=== PATIENT | female | born 1950 | race Caucasian/White ===

== ENCOUNTER 2016-12-04 13:05 | Inpatient (IN) | payer BC, OTHER ==
[~2016-12-04] VITALS: Ht 170.2 cm; Wt 70.0 kg
[2016-12-04] VITALS (9 sets, daily range): BP systolic 132–170; BP diastolic 89–103; PULSE 70–88; RESP 18–21; TEMP 98.9; O2SAT 98–100
[~2016-12-04 13:05] MED LIST: BETA80TA PO; HYDR-3111 PO; LEVO.075 PO; PLAQ200T PO; TAB-TAB PO; VIGA0.5D RIGHT EYE; [UNRECOGNIZED DRUG - CODE] PO
--- NOTE | 2016-12-04 14:39 | PD ---
HPI Chief Complaint: chest pain Time Seen by Provider: 14:16 Travel History International Travel<30 days: No Contact w/Intl Traveler<30days: No History of Present Illness HPI Patient is a 66-year-old female presents emergency Department with chest pain shortness of breath was mild nausea. Patient states she had a stress test 2 years ago. She states was normal at that time. She states she's never had catheterization. Patient states she was just coming out of her physician's office when she noticed a very tight sensation in the middle of her chest. She states all but relieved with rest but states he felt very diaphoretic when it first happened. Denies any abdominal pain denies any nausea vomiting. PFSH Past Medical History Cardiovascular Problems: Yes Diabetes: No Glaucoma: No Hepatitis: No Hiatal Hernia: No Hypertension: No Thyroid Disease: Yes Past Surgical History Gynecologic Surgery: Yes (HYSTERECTOMY 84') Neurologic Surgery: Yes (ANTERIOR CERVICAL FUSION ) Other Surgery: Yes Social History Alcohol Use: Yes Tobacco Use: No Substance Use: No Allergies-Medications (Allergen,Severity, Reaction): Coded Allergies: No Known Allergies (Unverified , 12/04/16) Reported Meds & Prescriptions Reported Meds & Active Scripts Active Reported Ativan (Lorazepam) 0.5 Mg Tab 0.5 Mg PO DAILY PRN Ambien CR (Zolpidem Tartrate) 12.5 Mg Tab 12.5 Mg PO HS PRN Mobic (Meloxicam) 15 Mg Tab 15 Mg PO DAILY Multi For Her (Multiple Vitamins W/ Minerals) 1 Tab Tab 1 Tab PO DAILY Betapace (Sotalol HCl) 80 Mg Tab 80 Mg PO HS Betapace (Sotalol HCl) 120 Mg Tab 120 Mg PO DAILY Synthroid (Levothyroxine Sodium) 75 Mcg Tab 75 Mcg PO DAILY Review of Systems Except as stated in HPI: all other systems reviewed are Neg Physical Exam Narrative GENERAL: Well-developed well-nourished no obvious distress. SKIN: Focused skin assessment warm/dry. HEAD: Atraumatic. Normocephalic. EYES: Pupils equal and round. No scleral icterus. No injection or drainage. ENT: No nasal bleeding or discharge. Mucous membranes pink and moist. NECK: Trachea midline. No JVD. CARDIOVASCULAR: Regular rate and rhythm. No murmur appreciated. 2+ bilateral equal pulses in all 4 extremity's. RESPIRATORY: No accessory muscle use. Clear to auscultation. Breath sounds equal bilaterally. GASTROINTESTINAL: Abdomen soft, non-tender, nondistended. Hepatic and splenic margins not palpable. MUSCULOSKELETAL: No obvious deformities. No clubbing. No cyanosis. No edema. NEUROLOGICAL: Awake and alert. No obvious cranial nerve deficits. Motor grossly within normal limits. Normal speech. PSYCHIATRIC: Appropriate mood and affect; insight and judgment normal. Data Data Last Documented VS Vital Signs Date Time Temp Pulse Resp B/P Pulse Ox O2 Delivery O2 Flow Rate FiO2 12/04/16 19:23 78 18 166/90 98 Room Air 12/04/16 17:07 98.9 Orders Electrocardiogram (12/04/16 14:38) Ckmb (Isoenzyme) Profile (12/04/16 14:38) Complete Blood Count With Diff (12/04/16 14:38) Comprehensive Metabolic Panel (12/04/16 14:38) Magnesium (Mg) (12/04/16 14:38) Prothrombin Time / Inr (Pt) (12/04/16 14:38) Act Partial Throm Time (Ptt) (12/04/16 14:38) Troponin I (12/04/16 14:38) Chest, Single Ap (12/04/16 14:38) Ecg Monitoring (12/04/16 14:38) Iv Access Insert/Monitor (12/04/16 14:38) Oximetry (12/04/16 14:38) Oxygen Administration (12/04/16 14:38) Aspirin Chew (Aspirin Chew) (12/04/16 14:45) Sodium Chloride 0.9% Flush (Ns Flush) (12/04/16 14:45) CKMB (12/04/16 16:52) CKMB% (12/04/16 16:52) Potassium Chlor 20 Meq Premix (Kcl 20 Me (12/04/16 19:00) Calcium Gluconate Inj (Calcium Gluconate (12/04/16 19:00) Heparin Infusion TJ.Q1H (12/04/16 18:46) Heparin Inj (Heparin Inj) (12/04/16 19:00) Heparin Inj (Heparin Inj) (12/05/16 01:00) Heparin Inj (Heparin Inj) (12/05/16 01:00) Heparin-D5w Inj (Heparin-D5w Inj) (12/04/16 19:00) Cbc No Diff, Includes Plts (12/07/16 06:00) Act Partial Throm Time (Ptt) (12/05/16 01:46) Occult Blood (Hemoccult) Stool (12/04/16 18:46) Phosphorus (Po4) (12/04/16 18:46) Basic Metabolic Panel (Bmp) (12/04/16 18:53) Ckmb (Isoenzyme) Profile (12/04/16 18:53) Troponin I (12/04/16 18:53) Labs Laboratory Tests Test 12/04/16 12/04/16 16:50 16:52 White Blood Count 9.4 TH/MM3 Red Blood Count 4.47 MIL/MM3 Hemoglobin 14.4 GM/DL Hematocrit 42.2 % Mean Corpuscular Volume 94.5 FL Mean Corpuscular Hemoglobin 32.3 PG Mean Corpuscular Hemoglobin 34.2 % Concent Red Cell Distribution Width 12.3 % Platelet Count 218 TH/MM3 Mean Platelet Volume 8.6 FL Neutrophils (%) (Auto) 87.9 % Lymphocytes (%) (Auto) 7.0 % Monocytes (%) (Auto) 4.5 % Eosinophils (%) (Auto) 0.2 % Basophils (%) (Auto) 0.4 % Neutrophils # (Auto) 8.3 TH/MM3 Lymphocytes # (Auto) 0.7 TH/MM3 Monocytes # (Auto) 0.4 TH/MM3 Eosinophils # (Auto) 0.0 TH/MM3 Basophils # (Auto) 0.0 TH/MM3 CBC Comment AUTO DIFF Differential Comment AUTO DIFF CONFIRMED Platelet Estimate NORMAL Platelet Morphology Comment NORMAL Prothrombin Time 10.7 SEC Prothromb Time International 1.0 RATIO Ratio Activated Partial 20.1 SEC Thromboplast Time Sodium Level 145 MEQ/L Potassium Level 2.3 MEQ/L Chloride Level 121 MEQ/L Carbon Dioxide Level 15.2 MEQ/L Anion Gap 9 MEQ/L Blood Urea Nitrogen 7 MG/DL Creatinine 0.24 MG/DL Estimat Glomerular Filtration 290 ML/MIN Rate Random Glucose 66 MG/DL Calcium Level 5.3 MG/DL Protein Corrected Calcium 6.6 MG/DL Magnesium Level 1.1 MG/DL Total Bilirubin 0.2 MG/DL Aspartate Amino Transf 108 U/L (AST/SGOT) Alanine Aminotransferase 19 U/L (ALT/SGPT) Alkaline Phosphatase 43 U/L Total Creatine Kinase 925 U/L Creatine Kinase MB 98.3 NG/ML Creatine Kinase MB % 10.6 % Troponin I 40.00 NG/ML Total Protein 4.1 GM/DL Albumin 2.2 GM/DL MDM Medical Decision Making Medical Screen Exam Complete: Yes Emergency Medical Condition: Yes Interpretation(s) EKG shows normal sinus rhythm normal axis and normal R-wave progression. No concerning ST segment changes. Differential Diagnosis ACS, AMI, CHF, pneumonia. Narrative Course Patient was roomed in emergency department, I ordered discussed with her that if her EKG troponin are negative that she should still consider chest pain center admission for consideration of stress testing. Patient was handed off to Valente Kitchen PA-C. After the patient was handed off to Valente Kitchen I was informed patient's troponin was elevated to 40. I discussed with the patient as well as Valente indications for heparinization. She is chest pain-free hemodynamically stable. I reviewed her EKG again and it is nonischemic. Mr. Kitchen to discuss with the patient's pre algebra teacher Dr. Hester for admission to the hospital. Diagnosis Primary Impression: NSTEMI (non-ST elevated myocardial infarction) Admitting Information Admitting Physician Requests: Admit Condition: Stable Tariq Arriaza MD Dec 04, 2016 14:39
[2016-12-04] MEDS ORDERED: SODIUM CHLORIDE 0.9% FLUSH 10 ML FLUSH IVF PRN (14:45)
[2016-12-04] MEDS ORDERED: ASPIRIN 81 MG CHEW TAB PO ONE (14:45)
--- NOTE | 2016-12-04 15:11 | RADRPT ---
EXAM DATE/TIME: 12/04/2016 14:58 [facility] COMPARISON: No previous studies available for comparison. INDICATIONS : Chest pain. MEDICAL HISTORY : Atrial tachycardia. SURGICAL HISTORY : None. ENCOUNTER: Initial ACUITY: 1 day PAIN SCORE: 5/10 LOCATION: middle chest FINDINGS: A single view of the chest demonstrates the lungs to be symmetrically aerated without evidence of mas s, infiltrate or effusion. The cardiomediastinal contours are unremarkable. Osseous structures are intact. CONCLUSION: No acute disease. Tariq Lim MD on December 04, 2016 at 15:09 Board Certified Radiologist. This report was verified electronically.
--- NOTE | 2016-12-04 17:14 | PD ---
HPI Chief Complaint: Chest Pain Time Seen by Provider: 17:10 Travel History International Travel<30 days: No Contact w/Intl Traveler<30days: No Traveled to known affect area: No History of Present Illness HPI 66- year old female with a PMHx of Hypothyroidism and Atrial tachycardia presents to the ED complaining of chest pain. The patient reports that the pain started around 11:15 this morning while at her physician's office. The patient reports the pain was right in the middle of her chest and she had some associated shortness of breath and diaphoresis at the time. She reports the pain felt like there was an "elephant on her chest." She reports at the time of the chest pain she took two 81 mg ASA. She reports that the pain is currently gone and has no shortness of breath. She reports that she is a former smoker, drinks alcohol, but denies any drug use. She denies any nausea, vomiting, diarrhea, or headache. No other complaints at this time. PFSH Past Medical History Heart Rhythm Problems: Yes (atrial tacycardia ) Cardiovascular Problems: Yes Diabetes: No Glaucoma: No Hepatitis: No Hiatal Hernia: No Hypertension: No Medical other: Yes (ARTHRITIS) Thyroid Disease: Yes Past Surgical History Gynecologic Surgery: Yes (HYSTERECTOMY 86') Neurologic Surgery: Yes (ANTERIOR CERVICAL FUSION ) Other Surgery: Yes Social History Alcohol Use: Yes (OCC) Tobacco Use: No Substance Use: No Allergies-Medications (Allergen,Severity, Reaction): Coded Allergies: No Known Allergies (Unverified , 12/04/16) Reported Meds & Prescriptions Reported Meds & Active Scripts Active Reported Ativan (Lorazepam) 0.5 Mg Tab 0.5 Mg PO DAILY PRN Ambien CR (Zolpidem Tartrate) 12.5 Mg Tab 12.5 Mg PO HS PRN Mobic (Meloxicam) 15 Mg Tab 15 Mg PO DAILY Multi For Her (Multiple Vitamins W/ Minerals) 1 Tab Tab 1 Tab PO DAILY Betapace (Sotalol HCl) 80 Mg Tab 80 Mg PO HS Betapace (Sotalol HCl) 120 Mg Tab 120 Mg PO DAILY Synthroid (Levothyroxine Sodium) 75 Mcg Tab 75 Mcg PO DAILY Review of Systems General / Constitutional: No: Fever, Chills, Weight Gain, Weight Loss, Other Eyes: No: Diploplia, Blurred Vision, Photophobia, Drainage, Redness, Foreign Body Sensation, Pain, Tearing, Blind Spots, Visual changes, Blindness, Other HENT: No: Headaches, Vertigo, Lightheadedness, Sore Throat, Rhinitis, Rhinorrhea, Congestion, Nosebleed, Neck Stiffness, Neck Pain, Masses, Gingival Bleeding, Dental Difficulties, Ear Discharge, Earache, Other Cardiovascular: Positive: Chest Pain or Discomfort (resolved), Diaphoresis ( resolved), No: Palpitations, Irregular Rhythm, Tachycardia, Syncope, Dyspnea on exertion, Varicosities, Edema, Cyanosis, Varicosities, Phlebitis, Claudication, Other Respiratory: Positive: Shortness of Breath (resolved), No: Cough, Wheezing, Sneezing, Orthopnea, Hemoptysis, Stridor, Night Sweats, Pleuritic Pain, Other Gastrointestinal: No: Nausea, Vomiting, Diarrhea, Abdominal Pain, Hematemesis, Hematochezia, Constipation, Changes in Bowel Habits, Indigestion, Dysphagia, Loss of Appetite, Other Genitourinary: No: Urgency, Frequency, Dysuria, Nocturia, Hematuria, Decreased Urinary Output, Oliguria, Hesitancy, Dribbling, Incontinence, Pelvic Pain, Flank Pain, Dyspareunia, Discharge, Dysmenorrhea, Menorrhagia, Metorrhagia, Vaginal Bleeding, Other Musculoskeletal: No: Myalgias, Arthralgias, Limited ROM, Weakness, Cramping, Edema, Pain, Atrophy, Other Skin: No Rash, No Itching, No Dryness, No Lumps, No Hives, No Change in Pigmentation, No Change in nails, No Alopecia, No Lesions, No Breast Lumps, No Breast Tenderness, No Breast Swelling, No Other Neurologic: No: Weakness, Dizziness, Syncope, Focal Abnormalities, Coordination Problem, Tremor, Ataxia, Headache, Change in Mentation, Slurred Speech, Paresthesia, Incontinence, Seizures, Sensory Disturbance, Other Psychiatric: No: Anxiety, Depression, Suicidal Ideations, Disorder of Thought, Mood Disorder, Substance Abuse, Homicidal Ideation, Other Endocrine: No: Heat Intolerance, Cold Intolerance, Polyuria, Polydipsia, Other Hematologic/Lymphatic: No: Easy Bruising, Lymph Node Enlargement, Other Physical Exam Narrative GENERAL: SKIN: Warm and dry. HEAD: Atraumatic. Normocephalic. EYES: Pupils equal and round. No scleral icterus. No injection or drainage. ENT: No nasal bleeding or discharge. Mucous membranes pink and moist. Tongue is midline. No uvula deviation. NECK: Trachea midline. No JVD. CARDIOVASCULAR: Regular rate and rhythm. No S3, S4, or murmurs. RESPIRATORY: No accessory muscle use. Clear to auscultation. Breath sounds equal bilaterally. No wheezing, rales, or rhonchi. GASTROINTESTINAL: Abdomen soft, non-tender, nondistended. Hepatic and splenic margins not palpable. MUSCULOSKELETAL: Extremities without clubbing, cyanosis, or edema. No obvious deformities. Range of motion of the upper and lower extremities bilaterally. 2 + pulses bilaterally. NEUROLOGICAL: Awake and alert. No obvious cranial nerve deficits. Motor grossly within normal limits. Five out of 5 muscle strength in the arms and legs. Normal speech. PSYCHIATRIC: Appropriate mood and affect; insight and judgment normal. Data Data Last Documented VS Vital Signs Date Time Temp Pulse Resp B/P Pulse Ox O2 Delivery O2 Flow Rate FiO2 12/04/16 19:23 78 18 166/90 98 Room Air 12/04/16 17:07 98.9 Orders Electrocardiogram (12/04/16 14:38) Ckmb (Isoenzyme) Profile (12/04/16 14:38) Complete Blood Count With Diff (12/04/16 14:38) Comprehensive Metabolic Panel (12/04/16 14:38) Magnesium (Mg) (12/04/16 14:38) Prothrombin Time / Inr (Pt) (12/04/16 14:38) Act Partial Throm Time (Ptt) (12/04/16 14:38) Troponin I (12/04/16 14:38) Chest, Single Ap (12/04/16 14:38) Ecg Monitoring (12/04/16 14:38) Iv Access Insert/Monitor (12/04/16 14:38) Oximetry (12/04/16 14:38) Oxygen Administration (12/04/16 14:38) Aspirin Chew (Aspirin Chew) (12/04/16 14:45) Sodium Chloride 0.9% Flush (Ns Flush) (12/04/16 14:45) CKMB (12/04/16 16:52) CKMB% (12/04/16 16:52) Potassium Chlor 20 Meq Premix (Kcl 20 Me (12/04/16 19:00) Calcium Gluconate Inj (Calcium Gluconate (12/04/16 19:00) Heparin Infusion TJ.Q1H (12/04/16 18:46) Heparin Inj (Heparin Inj) (12/04/16 19:00) Heparin Inj (Heparin Inj) (12/05/16 01:00) Heparin Inj (Heparin Inj) (12/05/16 01:00) Heparin-D5w Inj (Heparin-D5w Inj) (12/04/16 19:00) Cbc No Diff, Includes Plts (12/07/16 06:00) Act Partial Throm Time (Ptt) (12/05/16 01:46) Occult Blood (Hemoccult) Stool (12/04/16 18:46) Phosphorus (Po4) (12/04/16 18:46) Basic Metabolic Panel (Bmp) (12/04/16 18:53) Ckmb (Isoenzyme) Profile (12/04/16 18:53) Troponin I (12/04/16 18:53) Admit Order (Ed Use Only) (12/04/16 20:08) Consult Cardiology (12/04/16 ) Labs Laboratory Tests Test 12/04/16 12/04/16 12/04/16 16:50 16:52 19:15 White Blood Count 9.4 TH/MM3 Red Blood Count 4.47 MIL/MM3 Hemoglobin 14.4 GM/DL Hematocrit 42.2 % Mean Corpuscular Volume 94.5 FL Mean Corpuscular Hemoglobin 32.3 PG Mean Corpuscular Hemoglobin 34.2 % Concent Red Cell Distribution Width 12.3 % Platelet Count 218 TH/MM3 Mean Platelet Volume 8.6 FL Neutrophils (%) (Auto) 87.9 % Lymphocytes (%) (Auto) 7.0 % Monocytes (%) (Auto) 4.5 % Eosinophils (%) (Auto) 0.2 % Basophils (%) (Auto) 0.4 % Neutrophils # (Auto) 8.3 TH/MM3 Lymphocytes # (Auto) 0.7 TH/MM3 Monocytes # (Auto) 0.4 TH/MM3 Eosinophils # (Auto) 0.0 TH/MM3 Basophils # (Auto) 0.0 TH/MM3 CBC Comment AUTO DIFF Differential Comment AUTO DIFF CONFIRMED Platelet Estimate NORMAL Platelet Morphology Comment NORMAL Prothrombin Time 10.7 SEC Prothromb Time International 1.0 RATIO Ratio Activated Partial 20.1 SEC Thromboplast Time Sodium Level 145 MEQ/L Potassium Level 2.3 MEQ/L Chloride Level 121 MEQ/L Carbon Dioxide Level 15.2 MEQ/L Anion Gap 9 MEQ/L Blood Urea Nitrogen 7 MG/DL Creatinine 0.24 MG/DL Estimat Glomerular Filtration 290 ML/MIN Rate Random Glucose 66 MG/DL Calcium Level 5.3 MG/DL Protein Corrected Calcium 6.6 MG/DL Magnesium Level 1.1 MG/DL Total Bilirubin 0.2 MG/DL Aspartate Amino Transf 108 U/L (AST/SGOT) Alanine Aminotransferase 19 U/L (ALT/SGPT) Alkaline Phosphatase 43 U/L Total Creatine Kinase 925 U/L Creatine Kinase MB 98.3 NG/ML Creatine Kinase MB % 10.6 % Troponin I 40.00 NG/ML Total Protein 4.1 GM/DL Albumin 2.2 GM/DL Phosphorus Level 3.0 MG/DL MDM Medical Decision Making Medical Screen Exam Complete: Yes Emergency Medical Condition: Yes Medical Record Reviewed: Yes Interpretation(s) CBC & BMP Diagram 12/04/16 16:50 12/04/16 16:52 troponin of 40 CKMB elevated. EKG shows sinus rhythm with no sign of acute ischemia or arrhythmia. Read by me and attending. Last Impressions Chest X-Ray 12/04/16 5108 Signed Impressions: Service Date/Time: November 14:58 - CONCLUSION: No acute disease. Tariq Lim MD Differential Diagnosis STEMI versus N- STEMI versus chest pain versus ACS Narrative Course 66-year-old female that presents to the ED for evaluation of chest pain. Patient was initially evaluated by my attending. Please refer to his note. I was asked to take over case. Patient waiting for labs and likely admission to chest pain center. Patient was already given aspirin. Patient has been chest pain-free since been here and since been evaluated by Dr. Arriaza. He was found to have bigeminy initially and this seems to comes and go but her EKG here does not show any sign of ischemia. This was rechecked by me and my attending Dr. Arriaza and there is no sign of ischemia. Labs came back showing a hypokalemia, hypocalcemia, troponin of 40. Otherwise unremarkable. Case was discussed immediately with my attending Dr. Arriaza after for another troponin of 40 and he immediately went in and evaluated the patient with me and recommends admission and cardiology consult. Patient started on heparin, potassium and calcium as per my attendings recommendations. Patient follows with Dr. Hester for cardiology. Call placed to Dr. Hester who agrees with admission and nothing by mouth after midnight for likely cath Tomorrow. He wants to have the cardiac enzymes rechecked. HEPAS was paged and Dr. Rodriguez agrees to admission. Procedures EKG Prior to Arrival: Yes Diagnosis Primary Impression: NSTEMI (non-ST elevated myocardial infarction) Admitting Information Admitting Physician Requests: Admit Valente Kitchen Dec 04, 2016 17:14
[2016-12-04] MEDS ORDERED: AMBI12.5 PO (17:15)
[2016-12-04] MEDS ORDERED: LORA-392 PO (17:15)
[2016-12-04] MEDS ORDERED: [UNRECOGNIZED DRUG - CODE] PO (17:15)
[2016-12-04] MEDS ORDERED: BETA80TA PO (17:15)
[2016-12-04] MEDS ORDERED: MULTTAB24 PO (17:15)
[2016-12-04] MEDS ORDERED: MOBI15TA PO (17:15)
[2016-12-04 18:20] LABS: APTT (PATIENT) 20.1 SEC (24.3-30.1); PROTHROMBIN TIME - PATIENT 10.7 SEC (9.8-11.6)
[2016-12-04 18:28] LABS: AUTOMATED NEUTROPHIL # 8.3 TH/MM3 (1.8-7.7); BASOPHIL % 0.4 % (0.0-2.0); EOSINOPHIL % 0.2 % (0.0-4.0); HEMATOCRIT 42.2 % (35.0-46.0); LYMPHOCYTE # 0.7 TH/MM3 (1.0-4.8); MEAN CELL VOLUME 94.5 FL (80.0-100.0); MEAN CORPUSCULAR HEMOGLOBIN 32.3 PG (27.0-34.0); MEAN CORPUSCULAR HGB CONC 34.2 % (32.0-36.0); MONO % 4.5 % (0.0-8.0); NEUT % 87.9 % (16.0-70.0); PLATELET COUNT 218 TH/MM3 (150-450); RED BLOOD COUNT 4.47 MIL/MM3 (4.00-5.30); RED CELL DISTRIBUTION WIDTH 12.3 % (11.6-17.2); WHITE BLOOD COUNT 9.4 TH/MM3 (4.0-11.0)
[2016-12-04 18:29] LABS: HEMO FLAGS AUTO DIFF
[2016-12-04 18:34] LABS: BICARBONATE 15.2 MEQ/L (21.0-32.0); MAGNESIUM 1.1 MG/DL (1.5-2.5); TOTAL BILIRUBIN ADULT 0.2 MG/DL (0.2-1.0)
[2016-12-04 18:39] LABS: CALCIUM-PROTEIN CORRECTED 6.6 MG/DL (8.5-10.1); POTASSIUM 2.3 MEQ/L (3.5-5.1)
[2016-12-04] MEDS ORDERED: HEPARIN SODIUM - IV 10,000 UNITS/10 ML VIAL IV ONE (19:00)
[2016-12-04] MEDS ORDERED: CALCIUM GLUCONATE INJ 2 GM in DEXTROSE 5% IN WATER 100ML INJ 100 ML IV ONE ×2 (19:00)
[2016-12-04] MEDS ORDERED: HEPARIN-D5W 25,000 U/250 ML 250 ML IV SCH (19:00)
[2016-12-04 19:02] LABS: CKMB 98.3 NG/ML (0.5-3.6)
[2016-12-04 19:04] LABS: PLATELET ESTIMATE SMEAR NORMAL (NORMAL); PLATELET MORPHOLOGY NORMAL (NORMAL); SCAN/DIFF AUTO DIFF CONFIRMED
--- NOTE | 2016-12-04 20:27 | HHI.HP ---
[facility] Tami Kulkarni MD Admission Diagnosis NSTEMI Diagnoses: (1) NSTEMI (non-ST elevated myocardial infarction) Diagnosis: Principal (2) Atrial tachycardia Diagnosis: Principal (3) Hypokalemia Diagnosis: Principal (4) Hypocalcemia Diagnosis: Principal (5) Rhabdomyolysis Diagnosis: Principal (6) HTN (hypertension) Diagnosis: Principal Travel History International Travel<30 Days: No Contact w/Intl Traveler <30 Da: No Traveled to Known Affected Are: No History of Present Illness This is a 66-year-old female with a PMH of PSVT, Atrial Tachycardia, Anxiety and Hypothyroidism who presented to the ER with complaints of chest pain starting earlier this morning. Patient states she had gone to see her Pain Management physician this morning and noted acute onset of right-sided chest pain w/ "flip flopping" in her chest. Reports associated SOB and diaphoresis at that time. Does follow with Dr. Hester as outpatient, seen recently in office w/ normal exam. On arrival, BP 165/89, HR 76, O2 sat 100% on RA, Afebrile. CBC essentially unremarkable except for elevated neutrophil calm. K + 2.3. Ca 5.3. CPK 925. Trop 40.0. INR 1.0. CXR with no acute findings. Dr. Hester consulted by ER physician, started on Heparin gtt/Aggrastat infusion w/ plans for Cath in am. Pt currently chest pain free. Appears comfortable on exam. Electrolytes replaced in ER, repeat labs normalized. Repeat Trop >40. Review of Systems Except as stated in HPI: all other systems reviewed are Neg ROS: 14 point review of systems otherwise negative. Past Family Social History Past Medical History PMH: PSVT, Atrial Tachycardia, Anxiety and Hypothyroidism Past Surgical History PAST SURGICAL HISTORY: Hysterectomy, Anterior Cervical Fusion Allergies: Coded Allergies: No Known Allergies (Unverified , 12/04/16) Family History PAST FAMILY HISTORY: Reviewed. No h/o DM or CAD Social History PAST SOCIAL HISTORY: Occasional alcohol. Negative for tobacco or drugs. Physical Exam Vital Signs Vital Signs Date Time Temp Pulse Resp B/P Pulse Ox O2 Delivery O2 Flow Rate FiO2 12/04/16 19:23 78 18 166/90 98 Room Air 12/04/16 17:07 98.9 75 21 165/89 100 12/04/16 17:04 21 99 12/04/16 17:00 76 21 99 Room Air 12/04/16 17:00 98.9 83 21 165/89 100 Room Air Physical Exam PE: GENERAL: Extremely pleasant middle-aged white female in no acute distress. Appears comfortable. HEENT: PERRLA, EOMI. No scleral icterus or conjunctival pallor. No lid lag or facial droop. CARDIOVASCULAR: Regular rate and rhythm. No obvious murmurs to auscultation. No chest tenderness to palpation. RESPIRATORY: No obvious rhonchi or wheezing. Clear to auscultation. Breath sounds equal bilaterally. GASTROINTESTINAL: Abdomen soft, non-tender, nondistended. BS normal. MUSCULOSKELETAL: Extremities without clubbing, cyanosis, or edema. No obvious deformities. NEUROLOGICAL: Awake, alert and oriented x4. No focal neurologic deficits. Moving both upper and lower extremities spontaneously. Laboratory Laboratory Tests Test 12/04/16 12/04/16 12/04/16 16:50 16:52 19:15 White Blood Count 9.4 Red Blood Count 4.47 Hemoglobin 14.4 Hematocrit 42.2 Mean Corpuscular Volume 94.5 Mean Corpuscular Hemoglobin 32.3 Mean Corpuscular Hemoglobin 34.2 Concent Red Cell Distribution Width 12.3 Platelet Count 218 Mean Platelet Volume 8.6 Neutrophils (%) (Auto) 87.9 Lymphocytes (%) (Auto) 7.0 Monocytes (%) (Auto) 4.5 Eosinophils (%) (Auto) 0.2 Basophils (%) (Auto) 0.4 Neutrophils # (Auto) 8.3 Lymphocytes # (Auto) 0.7 Monocytes # (Auto) 0.4 Eosinophils # (Auto) 0.0 Basophils # (Auto) 0.0 CBC Comment AUTO DIFF Differential Comment AUTO DIFF CONFIRMED Platelet Estimate NORMAL Platelet Morphology Comment NORMAL Prothrombin Time 10.7 Prothromb Time International 1.0 Ratio Activated Partial 20.1 Thromboplast Time Sodium Level 145 Potassium Level 2.3 Chloride Level 121 Carbon Dioxide Level 15.2 Anion Gap 9 Blood Urea Nitrogen 7 Creatinine 0.24 Estimat Glomerular Filtration 290 Rate Random Glucose 66 Calcium Level 5.3 Protein Corrected Calcium 6.6 Magnesium Level 1.1 Total Bilirubin 0.2 Aspartate Amino Transf 108 (AST/SGOT) Alanine Aminotransferase 19 (ALT/SGPT) Alkaline Phosphatase 43 Total Creatine Kinase 925 Creatine Kinase MB 98.3 Creatine Kinase MB % 10.6 Troponin I 40.00 Total Protein 4.1 Albumin 2.2 Phosphorus Level 3.0 Result Diagram: 12/04/16 1650 12/04/16 165 Assessment and Plan Problem List: (1) NSTEMI (non-ST elevated myocardial infarction) ICD Code: I21.4 Status: Acute (2) Atrial tachycardia ICD Code: I47.1 Status: Acute (3) Hypokalemia ICD Code: E87.6 Status: Acute (4) Hypocalcemia ICD Code: E83.51 Status: Acute (5) Rhabdomyolysis ICD Code: M62.82 Status: Acute (6) HTN (hypertension) ICD Code: I10 Status: Acute Assessment and Plan A/P: 1. NSTEMI: acute onset of substernal chest pain, diaphoresis and SOB. Trop 40.0, repeat Trop >40. EKG w/ no acute ischemia. Follows w/ Dr. Hester as outpatient, started on Heparin gtt/Aggrastat w/ plan for Cath in am. NPO, NTG/ Morphine prn as needed, currently chest pain free. Case discussed w/ Dr. Hester 2. Atrial Tachycardia: h/o PSVT/Atrial Tachycardia, transient episode of tachycardia in ER, currently resolved after Lopressor. Resume home Sotalol, will monitor. 3. Hypokalemia: K+ 2.3, s/p replacement in ER, repeat K+ 3.6, will repeat labs and replace as needed. 4. Hypocalcemia: Ca 5.3, corrected 6.6, s/p replacement, repeat 8.8. Will recheck in am. 5. Rhabdomyolysis: CPK 925, repeat 1623, will check serial CPK for trend. Check U/a, UDS. IVF for hydration. 6. HTN: BP 160's, resume home medications, monitor BP. 7. DVT Prophylaxis: On Heparin/Aggrastat 8. Social work for d/c planning as needed. 9. Case discussed w/ ER physician at length. Physician Certification 2 Midnight Certification Type: Admission for Inpatient Services Order for Inpatient Services The services are ordered in accordance with Medicare regulations or non- Medicare payer requirements, as applicable. In the case of services not specified as inpatient-only, they are appropriately provided as inpatient services in accordance with the 2-midnight benchmark. Estimated LOS (days): 2 days is the estimated time the patient will need to remain in the hospital, assuming treatment plan goals are met and no additional complications. Post-Hospital Plan: Not yet determined Rosana Rodriguez MD Dec 04, 2016 20:27
[2016-12-04] MEDS ORDERED: MAGNESIUM HYDROXIDE SUSP 30 ML CUP PO PRN (20:30)
[2016-12-04] MEDS ORDERED: MORPHINE SULFATE 4 MG/ML INJ IV PRN (20:30)
[2016-12-04] MEDS ORDERED: SODIUM CHLORIDE 0.9% FLUSH 10 ML FLUSH IV FLUSH PRN ×2 (20:30→20:45)
[2016-12-04] MEDS ORDERED: NITROGLYCERIN 2% OINT 1 GM PACKET TOPICAL PRN (20:30)
[2016-12-04] MEDS ORDERED: LACTULOSE SYRUP 20 GM/30 ML CUP PO PRN (20:30)
[2016-12-04] MEDS ORDERED: ACETAMINOPHEN/HYDROcodone 325 MG/5 MG TAB PO PRN (20:30)
[2016-12-04] MEDS ORDERED: BISACODYL 10 MG SUPP RECTAL PRN (20:30)
[2016-12-04] MEDS ORDERED: ONDANSETRON HCL 4 MG/2 ML VIAL IVP PRN (20:30)
[2016-12-04] MEDS ORDERED: SENNOSIDES 8.6 MG TAB PO PRN (20:30)
[2016-12-04] MEDS ORDERED: ACETAMINOPHEN 325 MG TAB PO PRN ×2 (20:30→20:45)
[2016-12-04] MEDS: POTASSIUM CHLOR 20 MEQ PREMIX 100 ML IV SCH ×2 (20:31→21:00)
[2016-12-04] MEDS ORDERED: METOPROLOL TARTRATE 5 MG/5 ML VIAL IV PUSH STA ×2 (20:41→21:38)
[2016-12-04 20:43] LABS: ANION GAP 10 MEQ/L (5-15); BICARBONATE 22.8 MEQ/L (21.0-32.0); BLOOD UREA NITROGEN 11 MG/DL (7-18); CHLORIDE 100 MEQ/L (98-107); CREATINE KINASE 1623 U/L (26-192); GLOMERULAR FILTRATION RATE 93 ML/MIN (>89); POTASSIUM 3.6 MEQ/L (3.5-5.1); SODIUM (NA) 133 MEQ/L (136-145)
[2016-12-04] MEDS ORDERED: TIROFIBAN INFUSION INJ 250 ML IV SCH (20:43)
[2016-12-04] MEDS ORDERED: MORPHINE SULFATE 8 MG/ML INJ IV PUSH PRN (20:45)
[2016-12-04] MEDS: LORazepam 0.5 MG TAB PO PRN (20:58)
[2016-12-04] MEDS ORDERED: SODIUM CHLORIDE 0.9% FLUSH 10 ML FLUSH IV FLUSH SCH (21:00)
[2016-12-04] MEDS ORDERED: POTASSIUM CHLORIDE 20 MEQ CONTROLLED RELEASE TAB PO ONE (21:00)
[2016-12-04] MEDS ORDERED: METOPROLOL TARTRATE 25 MG TAB PO SCH (21:00)
[2016-12-04] MEDS ORDERED: ATORVASTATIN 10 MG TAB PO SCH (21:00)
[2016-12-04 21:05] LABS: CKMB 149.5 NG/ML (0.5-3.6)
[2016-12-04] MEDS ORDERED: ENALAPRILAT 1.25 MG/ML VIAL IV PUSH PRN (21:45)
[2016-12-04] MEDS ORDERED: LOSARTAN 25 MG TAB PO ONE (21:45)
[2016-12-04] MEDS: DOCUSATE SODIUM 50 MG/SENNA 8.6 MG TAB PO SCH (21:51)
[2016-12-04] MEDS: NITROGLYCERIN 2% OINT 1 GM PACKET TOP SCH (21:52)
[2016-12-04] MEDS: SODIUM CHLOR 0.9% 1000 ML INJ 1,000 ML IV SCH (21:53)
[2016-12-04] MEDS: SOTALOL HCL 80 MG TAB PO SCH (21:53)
--- NOTE | 2016-12-04 22:53 | MB ---
cc: GREY LONDONO M.D. DATE OF CONSULTATION December 04, 2016 REASON FOR CONSULTATION Chest pain. HISTORY Mrs. 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 The patient was in her usual state of good health until earlier today around noon when she was leaving her pain physician's office where she was discussing possible nerve root ablations for her back pain. Shortly thereafter she was very anxious about the procedure that was described to her and began experiencing a substernal chest discomfort she describes as a pressure sensation. This was associated with nausea and diaphoresis and some shortness of breath. She tells me that persisted when she went home and then after about 2 hours finally decided to call the ambulance and come to the emergency room. She said she still had some discomfort here in the emergency room and overall she feels that the discomfort lasted between 4 and 5 hours. She is currently lying in bed and is asymptomatic. She denies any chest discomfort at this time. Her initial EKG in the emergency room showed no significant ST deviation. Her initial cardiac enzymes, however, did come back abnormal with an elevated troponin and CPK. She has not had any previous episodes of chest discomfort. She denies any history of exertional dyspnea or chest discomfort. She has been taking all of her medication as directed. MEDICATIONS At home include: 1. Betapace 80 milligrams in the evening with 120 milligrams in the morning. 2. Fish oil supplements 1000 milligrams daily. 3. Levothyroxine 50 micrograms daily. 4. Plaquenil 200 milligrams daily. She says she has been off that for a few weeks now. 5. Multivitamins daily. 6. Ambien CR 12.5 milligrams at bedtime. 7. Lorazepam 0.5 milligrams p.r.n. 8. Ibuprofen p.r.n. 9. Vicodin 7.5/350 milligrams p.r.n. ALLERGIES None known. PAST MEDICAL HISTORY Osteoarthritis, atrial arrhythmias as noted, borderline hypertension, hypothyroidism. She denies history of previous myocardial infarction, heart failure, stroke, heart murmur, scarlet fever, rheumatic fever, pulmonary, gastrointestinal, liver or kidney disease. PAST SURGICAL HISTORY Hysterectomy 1983 and a cervical fusion in 1993, AV meagan ablation in 1997 that was unsuccessful for that time. FAMILY HISTORY There is history of coronary artery disease in her father who had a bypass surgery. SOCIAL HISTORY The patient is , lives with her . She is a mental health counselor. Denies any tobacco use at this time. She was a cigarette smoker one pack of cigarettes a day on and off for about 20 years but quit around 2002. Denies any illicit drug use. REVIEW OF SYSTEMS Denies lower extremity edema or claudication. Has occasional palpitations. Denies lightheadedness or syncope. Denies fevers, chills, night sweats, nausea, vomiting, diarrhea except for those mentioned today. Otherwise, her 12-point review of systems is negative except for that mentioned in the HPI. PHYSICAL EXAMINATION GENERAL: Reveals a 66-year-old thin white female lying in bed, anxious but in no distress. VITAL SIGNS: Blood pressure is 163/103 mmHg, heart rate 126 and regular, respiratory rate 18, temperature 98.9, oxygen saturation is 99% on room air. HEENT: Head is normocephalic and atraumatic. Pupils equal, round, reactive to light. Sclerae anicteric. Extraocular moments intact. NECK: Neck is supple. There is no adenopathy. No jugular venous distention at 90 degrees. Carotid upstrokes are normal. There are no bruits. Thyroid exam is normal. LUNGS: Lungs are clear. HEART: PMI is not displaced. S1-S2 normal. No murmurs, gallops, clicks or rubs. ABDOMEN: Bowel sounds present, soft, nontender. No hepatosplenomegaly, masses or bruits. EXTREMITIES: No cyanosis, clubbing or edema. Pulses are +4 bilaterally throughout the upper and lower extremities. There are no femoral bruits. NEUROLOGIC: Exam is grossly intact. CARDIOLOGY STUDIES EKG initially at 14:38 today in the emergency room on arrival showed a sinus rhythm, rate 72. Borderline left atrial abnormality. Some borderline ST depression in the anterior leads. Borderline abnormal EKG. Repeat EKG at this time shows a sinus tachycardia of 127 beats per minute with some inferior and anterior ST depression. IMAGING STUDIES Chest x-ray no acute disease. LABORATORY DATA CBC, white count 9.4, hemoglobin 14.4, platelet count 218,000. Coags were normal. Chemistries, sodium initially 145 with a potassium of 2.3 and a chloride of 121, CO2 15.2. Repeat at 19:15 hours sodium 133, potassium 3.6, chloride 100, CO2 22.8, BUN 11, creatinine 0.64, calcium 8.8, phosphorus 3.0. CPK on initial draw on admission 925 with a CPK MB percent of 10.6 and a troponin-I of 40.0. Repeat at 19:15 hours, CPK 1623, MB percent 9.2, troponin I greater than 40. IMPRESSION 1. Swk-HI-[id number] myocardial infarction. 2. Hypertension and tachycardia. 3. Suspected ASHD. 4. Hypokalemia. 5. Hypothyroidism, on replacement. 6. History of AV meagan reentry tachycardia and PSVT, successfully treated with sotalol. 7. Hypertriglyceridemia. 8. Anxiety disorder. RECOMMENDATIONS The patient has been started on intravenous heparin already in the emergency room. Topical nitrates and aspirin have been administered. She is having her potassium replaced both intravenously and orally. She will be given one dose of Lopressor 5 milligrams IV to improve her blood pressure and heart rate initially and then started on metoprolol 12.5 milligrams p.o. b.i.d. Her home medications will also be restarted including her sotalol. Atorvastatin 10 milligrams daily has also been ordered. She will be placed on tirofiban infusion this evening overnight and I have discussed with her plans for invasive workup first thing tomorrow morning with cardiac catheterization and possible PCI if indicated. I have discussed the indications, benefits, risks and alternatives of this procedure. Risks discussed include acute myocardial infarction, VT/VF, , arterial injury, bleeding, stroke, need for emergent open heart surgery. She understands these risks and is wishing and willing to proceed as planned tomorrow morning. If she has any recurrent chest discomfort between now and then we will do this emergently. I have discussed the case and plans with the hospitalist, Dr. Rodriguez, the patient and the nursing staff. Thank you for allowing me to participate in the care of this patient. MD VICENTE Anaya/JAZMÍN /9:09 PM /10:24 PM
[2016-12-04] MEDS: ZOLPIDEM TARTRATE 10 MG TAB PO PRN (23:48)
[2016-12-05] VITALS (14 sets, daily range): BP systolic 98–141; BP diastolic 55–89; PULSE 62–98; RESP 16–18; TEMP 98.1–98.7; O2SAT 97–100
[2016-12-05] MEDS ORDERED: HEPARIN SODIUM - IV 10,000 UNITS/10 ML VIAL IV PRN ×2 (01:00)
[2016-12-05 01:48] LABS: APTT (PATIENT) 51.1 SEC (24.3-30.1)
[2016-12-05 02:47] LABS: CKMB 74.9 NG/ML (0.5-3.6)
[2016-12-05] MEDS: LEVOTHYROXINE SODIUM 75 MCG TAB PO SCH (06:00)
[2016-12-05] MEDS: NITROGLYCERIN 2% OINT 1 GM PACKET TOP SCH ×2 (06:45)
[2016-12-05] MEDS ORDERED: HEPARIN-NS/PF INJ 500 ML ONE (07:24)
[2016-12-05] MEDS ORDERED: IOHEXOL 350 MG/ML 100 ML BTL (for Cath Lab) OTHER ONE (07:36)
[2016-12-05] MEDS ORDERED: MIDAZOLAM HCL 2 MG/2 ML VIAL ONE (07:36)
[2016-12-05] MEDS ORDERED: oxyCODONE/ACETAMINOPHEN 5 MG/325 MG TAB PO PRN (08:15)
[2016-12-05] MEDS ORDERED: LORazepam 2 MG/ML VIAL IV PRN (08:15)
[2016-12-05] MEDS ORDERED: BACITRACIN OINT 0.9 GM PKT TOP ONE (08:15)
[2016-12-05] MEDS ORDERED: SODIUM CHLOR 0.9% 250 ML INJ 250 ML IV PRN (08:15)
[2016-12-05] MEDS ORDERED: SODIUM CHLORIDE 0.9% FLUSH 10 ML FLUSH IV FLUSH PRN (08:15)
[2016-12-05] MEDS ORDERED: SODIUM CHLOR 0.9% 1000 ML INJ 1,000 ML IV SCH (08:15)
[2016-12-05] MEDS ORDERED: ATROPINE SULFATE 1 MG/ML VIAL IV PRN (08:15)
[2016-12-05] MEDS ORDERED: MISC INFORMATION XX ONE (08:15)
--- NOTE | 2016-12-05 08:25 | CATHPROC ---
[facility] HIS Report Study Information Study Number Admission Scheduled Start Study Start [id number] Dec 04 2016 8:10PM 12/04/2016 Dec 05 2016 6:51AM [facility] Cardiac Catheterization Admit Source Facility Department Emergency department [facility] - Director Of Food And Beverage Services Physician and Clinical Staff Initial Dario Giles Primary Products Inspectors Destiny Lorenzana,RN Primary Products Inspectors Allan Sims,LUZ Recorder Genaro Law RCIS(BS) Scrub Cheryl Bassett,(R) (BS) X-Ray cathlab, cathlab Procedures Performed Procedure Location (Site) Vessel Name Angiogram LV LV Ventricle Coronary Angiograms LCA Left Coronary Coronary Angiograms RCA Right Coronary L Heart Cath Equipment Time Clockmaker Apprentice Description Size Mfg Part Number Used/Scraped TRANSDUCER, TRUWAVE [id number] 07:19 MCLEOD MORALES * Used W/STOCKCOCK *[id number] 07:54 CARDIShake MEDICAL VASCADE, FR6 CLOSURE SYSTEM FR 6\7 Used *[id number] *[id number] *[id number] *[id number] 07:44 MALLINCKRODT SYRINGE, ANGIOMAT 150ML 150ML *[id number] Used 2SUB [id number] 07:19 MEDLINE INDUSTRIES PACK, CCL CUSTOM * Used *[id number] 07:19 MEDLINE PACER PEN, SKIN DUAL W/ RULER * Used *[id number] 07:19 Anna Lozabai MEDICAL SHEATH, FR6.5 PRELUDE 11CM FR 6.5 038ACT Used *[id number] 07:19 Anna Lozabai MEDICAL WIRE, 3MMJ .035 180CM 180CM Used *[id number] 07:19 NAMIC MANIFOLD, 4 PORT * Used *[id number] 07:19 NYCOMED OMNIPAQUE, 350 MG, 150ML 150ML [id number] Used 07:42 NYCOMED OMNIPAQUE, 350 MG, 50ML 50ML [id number] Used [id number] 07:19 [employer]ream MEDICAL BLANKET,WARM AIR CCL * Used *[id number] History: Current Medications Medication Dosage/Unit Route Frequency Last Date/Time Taken ATIVAN Ambien Synthroid Beta Re History: Allergies Allergy Reaction No Known Allergies History: Risk Factors Family History of Hypertension Dyslipidemia Previous AL Previous Heart Failure Premature CAD No No No No No Prior Valve Prior PCI Prior CABG Surgery No No No Cerebrovascular Peripheral Artery Chronic Lung On Dialysis Diabetes Disease Disease Disease No No No No No History: Symptoms/Diagnosis Selection Items Chest pain SOB History: Other Current Smoker Method No Cigarettes Labs Hgb (g/dl) Hct (%) WBC (l/cumm) Platelets (thousands) 11.60-17.00 35.00-51.00 4.00-11.00 150.00-450.00 14.4 12.2 9.4 218 Glucose (mg/dl) BUN (mg/dl) Creatinine (mg/dl) BUN:Creatinine (1:x) 74.00-106.00 7.00-18.00 0.50-1.30 10.00-20.00 108 11 0.6 18.3 Na (meq/l) K (meq/l) 136.00-145.00 3.50-5.10 133 3.6 INR (PTT:PT) 0.90-1.10 1 Troponin I (ng/ml) CPK (u/l) CPK-MB (ng/ML) 0.02-0.05 26.00-308.00 0.50-3.60 40 64 Not Drawn Medication Medication Total Dose (Bolus/Oral) Medication Total Dosage/Unit 1% XYLOCAINE 20 mL FENTANYL 75 mcg VERSED 2 mg Medications (Bolus/Oral) Medication Time Given Dosage/Unit Administered By Reason FENTANYL 12/05/2016 7:29:02 AM 50 mcg Destiny Lorenzana 50 mcg FENTANYL given in lab by Destiny Lorenzana RN in Left Antecubital via Peripheral IV. Ordered by Dario Hester. 1% XYLOCAINE 12/05/2016 7:36:29 AM 20 mL Dario Hester 20 mL 1% XYLOCAINE given in lab by Dario Hester in Right Groin via Subcutaneous. Ordered by Dario Samuel. VERSED 12/05/2016 7:37:04 AM 2 mg Destiny Lorenzana 2 mg VERSED given in lab by Destiny Lorenzana, LUZ in Left Antecubital via Peripheral IV. Ordered by Dario Hernandez. FENTANYL 12/05/2016 7:48:48 AM 25 mcg Prateek Lorenzanaon 25 mcg FENTANYL given in lab by Destiny Lorenzana RN in Left Antecubital via Peripheral IV. Ordered by Dario Hester. Medication (Drip) Medication Time Given Dosage/Unit Concentration/Unit Diluent (ml) Solution AGGRASTAT DRIP 12/05/2016 7:21:46 AM 0.15 mcg/kg/min 12.5 mg 250 NaCl .9 Patient arrived on 0.15 mcg/kg/min AGGRASTAT DRIP in Left Antecubital via Peripheral IV. Pump/Drip Fl ow = 12.02 ml/hr using NaCl .9 with a concentration of 12.5 mg in 250 ml. Ordered by Dario Hester. AGGRASTAT DRIP 12/05/2016 7:55:09 AM 0 units/hr 0 STOPPED 0 units/hr AGGRASTAT DRIP STOPPED given in lab by Destiny Lorenzana RN in Left Antecubital via Peripher al IV. Pump/Drip Flow = 0 ml/hr using [Solution Name]. Ordered by Dario Hester. Initial Case Assessment Cardiovascular HR Rhythm NIBP Chest Pain 75 sinus 152/99 0 Edema Present Skin color Skin None Normal Warm Dry Circulatory - Right Pulses Dorsalis Pedis Femoral 3 2 Scale (0,1,2,3,4,d) Circulatory - Left Pulses Dorsalis Pedis Femoral 3 2 Scale (0,1,2,3,4,d) Neurological State Oriented to time-place- Alert Moves all extremities person Respiration - General Respiration Rate SpO2 (%) (B/min) 15 99 Final Case Assessment Cardiovascular HR Rhythm NIBP Chest Pain 75 sinus 152/99 0 Edema Present Skin color Skin None Normal Warm Dry Circulatory - Right Pulses Dorsalis Pedis Femoral 3 2 Scale (0,1,2,3,4,d) Circulatory - Left Pulses Dorsalis Pedis Femoral 3 2 Scale (0,1,2,3,4,d) Neurological State Oriented to time-place- Alert Moves all extremities person Respiration - General Respiration Rate SpO2 (%) (B/min) 15 99 Chronological Log Time Study Chronological Log 7:17:30 Patient arrived via Bed. 7:17:31 Patient Name, D.O.B, / Armband Verified By R.N. 7:17:31 Consent signed by the physician and the patient and verified by the Director Of Food And Beverage Services staff. 7:17:32 Pre-op and post- op instructions given; patient acknowledges understanding of instructions. 7:17:32 Verbal Stimulation=2 Physical Stimulation=2 Airway=2 Respiration=2 TOTAL=8. (0=absent, 1=li mited, 2=present) 7:17:33 Presedation assessment performed by Director Of Food And Beverage Services RN. 7:17:34 Immediate Presedation assesment performed by physician. 7:17:35 Patient has been NPO for More than 6Hrs. 7:17:35 Skin Breakdown- none per patient 7:17:36 Patient Warmer Placed on the Table. 7:17:37 Devang Prominences Protected 7:17:38 A # 20 IV was noted in the Antecubital (left). Grade = 0 7:21:38 A # 20 IV was noted in the Antecubital (right). Grade = 0 Patient arrived on 0.15 mcg/kg/min AGGRASTAT DRIP in Left Antecubital via Peripheral IV. Pump/D rip Flow = 12.02 7:21:46 ml/hr using NaCl .9 with a concentration of 12.5 mg in 250 ml. Ordered by Dario Hester. 7:23:02 MD arrived. Vitals capture started with the following parameters, Patient=Adult, Interval=3 min, Initial Pr zisavk=630 mmHg, 7:24:13 Deflation Rate=5 mmHg, Cuff placed on Right Arm 7:24:38 Reference ECG taken Assessment: Initial Case, HR=75 BPM, Rhythm=sinus, OWLZ=731/99 mmhg, Chest Pain=0, Edema=None, Color=Normal, Skin = Warm, Dry Right Pulses: Jorge Ped=3, Femoral=2 7:24:41 Left Pulses: Jorge Ped=3, Femoral=2 Neurological: State=Alert, Ox3, GUAMAN Respiration: Resp=15 B/min, SpO2=99 % 7:24:46 HR=75 bpm, EJJX=094/99 mmhg, SpO2=99.0 %, Resp=15 B/min, Pain=0, Adarsh=10, Delacruz=2 7:25:21 Contrast Scanned 7:25:22 Immediate Presedation assesment performed by physician. 7:27:47 HR=75 bpm, IHUN=223/101 mmhg, CbG3=616.0 %, Resp=20 B/min, Delacruz=2 7:29:02 50 mcg FENTANYL given in lab by Destiny Lorenzana, RN in Left Antecubital via Peripheral IV. Or dered by Dario Hester. 7:30:47 HR=72 bpm, IENO=656/95 mmhg, SqX3=502.0 %, Resp=14 B/min, Pain=0, Adarsh=10, Delacruz=2 7:30:53 Right groin prepped with 2% chlorhexidine, and with a 3 min. waiting time. 7:33:47 HR=76 bpm, GQFO=792/102 mmhg, HrQ5=385.0 %, Resp=14 B/min, Pain=0, Delacruz=2 Time Out. Correct patient, correct procedure,correct physician, power injector not loaded with c ontrast with surgical 7:35:19 team present. Time Out Concurred by MD and individual staff in procedure 7:35:57 Pressure channel 1 zeroed. 7:36:26 Case Start 7:36:29 20 mL 1% XYLOCAINE given in lab by Dario Hester in Right Groin via Subcutaneous. Ordered by Dario Hester. 7:36:47 HR=79 bpm, BLUR=509/96 mmhg, TyZ1=320.0 %, Resp=14 B/min 7:37:04 2 mg VERSED given in lab by Destiny Lorenzana RN in Left Antecubital via Peripheral IV. Ordere d by Dario Hester. 7:39:41 HR=72 bpm, KGOC=043/97 mmhg, PiX1=910.0 %, Resp=10 B/min, Pain=0, Delacruz=2 7:39:58 Access site was Right Femoral Artery. 7:40:00 A SHEATH, FR6.5 PRELUDE 11CM FR 6.5 was advanced into the Fem Art (right) using the Percutan eous technique. 7:41:23 Activated Clotting Time Drawn A PIGTAIL STR INFINITI CATHETER FR 6 was advanced over a wire. OMNIPAQUE, 350 MG, 50ML 50ML was used for 7:41:32 injections. Recorded Pressure: LV, HR=72, Condition=Condition 1 7:42:37 (Left Ventricle) LV 145/10/22 7:42:48 HR=70 bpm, IYUV=625/89 mmhg, SpO2=98.0 %, Resp=15 B/min, Pain=0, Delacruz=2 7:43:53 The LV was injected at 12 cc/sec for a total of 32. OMNIPAQUE, 350 MG, 50ML 50ML used. Recorded Pressure: LV, Ao, HR=85, Condition=Condition 1 7:44:23 (Left Ventricle) LV 128/7/22, (Aorta) Ao 140/81/108 A JL 4.0 INFINITI CATHETER FR 6 was advanced over a wire. OMNIPAQUE, 350 MG, 150ML 150ML was use d for 7:45:11 injections. 7:46:27 HR=73 bpm, PFEI=352/97 mmhg, SpO2=99.0 %, Resp=8 B/min 7:46:45 The LCA was injected and visualized at various angles. OMNIPAQUE, 350 MG, 150ML 150ML used. 7:48:38 Catheter was removed 7:48:46 HR=76 bpm, GJMT=329/92 mmhg, SpO2=97.0 %, Resp=12 B/min 7:48:48 25 mcg FENTANYL given in lab by Destiny Lorenzana, LUZ in Left Antecubital via Peripheral IV. Or dered by Dario Hester. A 3DRC INFINITI CATHETER FR 6 was advanced over a wire. OMNIPAQUE, 350 MG, 150ML 150ML was used for 7:49:30 injections. 7:50:51 The RCA was injected and visualized at various angles. OMNIPAQUE, 350 MG, 150ML 150ML used. 7:51:33 Catheter was removed 7:51:46 HR=81 bpm, PQUE=004/96 mmhg, SpO2=98.0 %, Resp=16 B/min, Pain=0, Adarsh=10, Delacruz=2 7:52:34 An injection in the Fem Art (right) was made through the SHEATH, FR6.5 PRELUDE 11CM FR 6.5 . 7:53:03 An injection in the Fem Art (right) was made through the SHEATH, FR6.5 PRELUDE 11CM FR 6.5 . 7:53:27 VASCADE, FR6 CLOSURE SYSTEM FR 6\7 placement in the Fem Art (right) 7:54:47 HR=77 bpm, WAJU=874/95 mmhg, SpO2=98.0 %, Resp=13 B/min, Pain=0, Adarsh=10, Delacruz=2 0 units/hr AGGRASTAT DRIP STOPPED given in lab by Destiny Lorenzana, RN in Left Antecubital via P eripheral IV. 7:55:09 Pump/Drip Flow = 0 ml/hr using [Solution Name]. Ordered by Dario Hester. 7:55:25 Case End Assessment: Final Case, HR=75 BPM, Rhythm=sinus, XHGS=079/99 mmhg, Chest Pain=0, Edema=None, Color=Normal, Skin = Warm, Dry Right Pulses: Jorge Ped=3, Femoral=2 7:55:29 Left Pulses: Jorge Ped=3, Femoral=2 Neurological: State=Alert, Ox3, GUAMAN Respiration: Resp=15 B/min, SpO2=99 % 7:55:51 No case complications noted. 7:55:52 Cine recording checked. 7:55:54 Bedside Report will be given. 7:55:55 Contrast Scanned 7:55:56 Verbal Stimulation=2 Physical Stimulation=2 Airway=2 Respiration=2 TOTAL=8. (0=absent, 1=l imited, 2=present) 7:56:04 A Left Heart Cath was performed. 7:57:49 HR=72 bpm, ZCAJ=674/89 mmhg, SpO2=98.0 %, Resp=16 B/min, Pain=0, Adarsh=10, Delacruz=2 8:00:47 HR=72 bpm, UUAJ=230/92 mmhg, SpO2=98.0 %, Resp=13 B/min, Pain=0, Adarsh=10, Delacruz=2 8:03:41 HR=74 bpm, ELJO=566/107 mmhg, SpO2=98.0 %, Resp=14 B/min, Pain=0, Adarsh=10, Delacruz=2 8:07:02 Sterile dressing applied to site 8:07:14 HR=67 bpm, HYCL=543/90 mmhg, SpO2=98.0 %, Resp=15 B/min, Pain=0, Adarsh=10, Delacruz=2 8:12:34 Vitals capture stopped. 8:13:02 Patient moved to stretcher End Study - Contrast Media Used In Study Contrast Total Opened (mL) Total Used (mL) Total Wasted (mL) Omnipaque 80 80 0 End Study - Maximum Contrast Load Max Contrast Load (mL) 556.8 End Study - Radiation Exposure Fluoro Time (minutes) 3.2 End Study - Patient Disposition Complications Transferred To Interventional Outcome No Director Of Food And Beverage Services Holding No attempt made
[2016-12-05] MEDS: SODIUM CHLORIDE 0.9% FLUSH 10 ML FLUSH IV FLUSH SCH ×2 (08:45→19:50)
[2016-12-05] MEDS: PRASUGREL 10 MG TAB PO SCH (08:45)
[2016-12-05] MEDS: MULTIVITAMIN TAB PO SCH (08:45)
[2016-12-05] MEDS: DOCUSATE SODIUM 50 MG/SENNA 8.6 MG TAB PO SCH ×2 (08:45→19:49)
[2016-12-05] MEDS: SOTALOL HCL 80 MG TAB PO SCH ×2 (08:45→19:49)
--- NOTE | 2016-12-05 08:56 | HHI.PR ---
Subjective Remarks This is a pleasant 66 y/o Female with PSVT, Atrial Tachycardia, Anxiety, Hypothyroidism, who came to ER with chest pain associated SOB and Diaphoresis, followed by Doctor Dario Hester outpatient, found Hypokalemic, Hypocalcemia Trop 40.0. INR 1.0. CXR with no acute findings. Dr. Hester consulted by ER physician, started on Heparin gtt/Aggrastat infusion, status post Cardiac Catheterization Suspected Takotsubo-Type syndrome , Tirofiban discontinued, Started on Effient and DAPT, Beta blockers, EBONIE inhibitor and Sublingual Nitroglycerine. observe overnight and Discharge in am tomorrow. No complaint by patient at this time, no nausea, vomit or diarrhea. Objective Vital Signs Date Time Temp Pulse Resp B/P Pulse Ox O2 Delivery O2 Flow Rate FiO2 12/05/16 05:57 62 18 109/70 98 Room Air 12/05/16 04:00 64 18 110/77 99 Room Air 12/05/16 03:00 62 18 98/64 98 Room Air 12/05/16 02:49 88 16 102/55 99 Room Air 12/04/16 23:51 70 18 132/89 99 Room Air 12/04/16 23:00 88 18 142/91 99 Room Air 12/04/16 22:05 99 21 12/04/16 22:00 76 18 170/102 98 Room Air 12/04/16 21:32 16 12/04/16 21:02 80 18 163/103 99 Room Air 12/04/16 19:23 78 18 166/90 98 Room Air 12/04/16 17:07 98.9 75 21 165/89 100 12/04/16 17:04 21 99 12/04/16 17:00 76 21 99 Room Air 12/04/16 17:00 98.9 83 21 165/89 100 Room Air I/O 12/04/16 12/04/16 12/04/16 12/05/16 12/05/16 12/05/16 07:00 15:00 23:00 07:00 15:00 23:00 Intake Total 240 ml Balance 240 ml Intake Oral 240 ml Result Diagram: 12/04/16 1650 12/04/16 1915 Imaging Last Impressions Chest X-Ray 12/04/16 1438 Signed Impressions: Service Date/Time: November 14:58 - CONCLUSION: No acute disease. Tariq Lim MD Procedures Cardiac Catheterization Other Results Laboratory Tests Test 12/04/16 12/04/16 12/04/16 12/05/16 16:50 16:52 19:15 01:16 White Blood Count 9.4 TH/MM3 Red Blood Count 4.47 MIL/MM3 Hemoglobin 14.4 GM/DL Hematocrit 42.2 % Mean Corpuscular Volume 94.5 FL Mean Corpuscular Hemoglobin 32.3 PG Mean Corpuscular Hemoglobin 34.2 % Concent Red Cell Distribution Width 12.3 % Platelet Count 218 TH/MM3 Mean Platelet Volume 8.6 FL Neutrophils (%) (Auto) 87.9 % Lymphocytes (%) (Auto) 7.0 % Monocytes (%) (Auto) 4.5 % Eosinophils (%) (Auto) 0.2 % Basophils (%) (Auto) 0.4 % Neutrophils # (Auto) 8.3 TH/MM3 Lymphocytes # (Auto) 0.7 TH/MM3 Monocytes # (Auto) 0.4 TH/MM3 Eosinophils # (Auto) 0.0 TH/MM3 Basophils # (Auto) 0.0 TH/MM3 CBC Comment AUTO DIFF Differential Comment AUTO DIFF CONFIRMED Platelet Estimate NORMAL Platelet Morphology Comment NORMAL Prothrombin Time 10.7 SEC Prothromb Time International 1.0 RATIO Ratio Protein Corrected Calcium 6.6 MG/DL Magnesium Level 1.1 MG/DL Total Bilirubin 0.2 MG/DL Aspartate Amino Transf 108 U/L (AST/SGOT) Alanine Aminotransferase 19 U/L (ALT/SGPT) Alkaline Phosphatase 43 U/L Total Protein 4.1 GM/DL Albumin 2.2 GM/DL Sodium Level 133 MEQ/L Potassium Level 3.6 MEQ/L Chloride Level 100 MEQ/L Carbon Dioxide Level 22.8 MEQ/L Anion Gap 10 MEQ/L Blood Urea Nitrogen 11 MG/DL Creatinine 0.64 MG/DL Estimat Glomerular Filtration 93 ML/MIN Rate Random Glucose 108 MG/DL Calcium Level 8.8 MG/DL Phosphorus Level 3.0 MG/DL Activated Partial 51.1 SEC Thromboplast Time Test 12/05/16 01:30 Total Creatine Kinase 1167 U/L Creatine Kinase MB 74.9 NG/ML Creatine Kinase MB % 6.4 % Troponin I 23.50 NG/ML Thyroid Stimulating Hormone 3.130 uIU/ML 3rd Gen Objective Remarks PE: No acute distress GENERAL: Extremely pleasant middle-aged white female in no acute distress. Appears comfortable. HEENT: PERRLA, EOMI. No scleral icterus or conjunctival pallor. No lid lag or facial droop. CARDIOVASCULAR: Regular rate and rhythm. No obvious murmurs to auscultation. No chest tenderness to palpation. RESPIRATORY: No obvious rhonchi or wheezing. Clear to auscultation. Breath sounds equal bilaterally. GASTROINTESTINAL: Abdomen soft, non-tender, nondistended. BS normal. MUSCULOSKELETAL: Extremities without clubbing, cyanosis, or edema. No obvious deformities. NEUROLOGICAL: Awake, alert and oriented x4. No focal neurologic deficits. Moving both upper and lower extremities spontaneously. Medications and IVs Current Medications Medications (Trade) Dose Ordered Sig/Flaquita Route Start Time Stop Time Status Last Admin (NS Flush) 2 ml UNSCH PRN IVF 12/04/16 14:45 Nitroglycerin 0.5 inch 0.5 inch Q6HR PRN TOPICAL 12/04/16 20:30 (NS 1000 ml Inj) 1,000 ml @ 100 mls/hr Q10H IV 12/04/16 20:22 12/04/16 21:53 (Zofran Inj) 4 mg Q6H PRN IVP 12/04/16 20:30 (Tylenol) 650 mg Q6H PRN PO 12/04/16 20:30 ([place] 5-325 Mg) 1 tab Q4H PRN PO 12/04/16 20:30 (Morphine Inj) 2 mg Q3H PRN IV 12/04/16 20:30 12/04/16 20:58 (Chaya-Colace) 1 tab BID PO 12/04/16 21:00 12/04/16 21:51 (Milk Of Magnesia Liq) 30 ml Q12H PRN PO 12/04/16 20:30 (Senokot) 17.2 mg Q12H PRN PO 12/04/16 20:30 (Dulcolax Supp) 10 mg DAILY PRN RECTAL 12/04/16 20:30 (Lactulose Liq) 30 ml DAILY PRN PO 12/04/16 20:30 (Synthroid) 75 mcg DAILY@06 PO 12/05/16 06:00 (Ativan) 0.5 mg DAILY PRN PO 12/04/16 20:30 12/04/16 20:58 (Betapace) 80 mg HS PO 12/04/16 21:00 12/04/16 21:53 (Betapace) 120 mg DAILY PO 12/05/16 09:00 (Theragran) 1 tab DAILY PO 12/05/16 09:00 (Vasotec Inj) 1.25 mg Q6H PRN IV PUSH 12/04/16 21:45 Zolpidem Tartrate 10 mg 10 mg HS PRN PO 12/04/16 23:15 12/04/16 23:48 (NS 1000 ml Inj) 1,000 ml @ 100 mls/hr Q10H IV 12/05/16 08:15 12/05/16 14:14 (NS Flush) 2 ml BID IV FLUSH 12/05/16 09:00 (NS Flush) 2 ml UNSCH PRN IV FLUSH 12/05/16 08:15 (Percocet 5-325 Mg) 1 tab Q4H PRN PO 12/05/16 08:15 (Ativan Inj) 0.5 mg UNSCH PRN IV 12/05/16 08:15 12/06/16 08:14 Atropine Sulfate 0.5 mg 0.5 mg UNSCH PRN IV 12/05/16 08:15 (NS 250 ml Inj) 250 ml @ 500 mls/hr ONCE PRN IV 12/05/16 08:15 12/06/16 08:14 (Effient) 10 mg DAILY PO 12/05/16 09:00 A/P Assessment and Plan 1. Takotsubo-Type Syndrome recommended Tirofiban discontinued, Started on Effient and DAPT, Beta blockers, EBONIE inhibitor and Sublingual Nitroglycerine. observe overnight and Discharge in am tomorrow. 2. Hypertension continue Beta blockers and EBONIE inhibitors. 3. Hypothyroidism continue Hormonal replacement 4. History of AV meagan reentry tachycardia and PSVT successfully treated with Sotalol. 5. Rhabdomyolysis on IV fluids. 6. Anxiety disorder 7. electrolyte derangement replaced and following. DVT Prophylaxis: SCDs Discharge Planning discharge in am tomorrow. David Kinney MD Dec 05, 2016 08:55
[2016-12-05] MEDS ORDERED: ASPIRIN EC 325 MG TABEC PO SCH (09:00)
[2016-12-05] MEDS ORDERED: LEVOTHYROXINE SODIUM 75 MCG TAB PO ONE (09:15)
[2016-12-05] MEDS ORDERED: MAGNESIUM SULFATE 1 GM PREMIX 100 ML IV ONE (10:45)
--- NOTE | 2016-12-05 14:16 | EKG ---
Date Performed: 12/04/2016 Time Performed: 20:50:46 PTAGE: 66 years EKG: ATRIAL FLUTTER/TACHYCARDIA WITH RAPID VENTRICULAR RESPONSE ST DEPRESSION, CONSIDER SUBENDOC ARDIAL INJURY Rhythm is likely sinus tachycardia vs. SVT. This is a change from prior tracing, nonspe cific ST segment changes are more prominent ABNORMAL ECG PREVIOUS TRACING : 12/04/16 DOCTOR: Atul Parker Interpretating Date/Time 12/05/2016 14:15:39
--- NOTE | 2016-12-05 14:16 | EKG ---
Date Performed: 12/05/2016 Time Performed: 06:12:12 PTAGE: 66 years EKG: Sinus rhythm POSSIBLE LEFT ATRIAL ENLARGEMENT Compared to prior tracing sinus rhythm is now present, ST segment c hanges have resolved BORDERLINE ECG PREVIOUS TRACING : 12/04/2016 15.05 DOCTOR: Atul Parker Interpretating Date/Time 12/05/2016 14:16:09
[2016-12-05 14:33] LABS: AUTOMATED NEUTROPHIL # 3.1 TH/MM3 (1.8-7.7); BASOPHIL % 0.4 % (0.0-2.0); EOSINOPHIL % 0.4 % (0.0-4.0); HEMO FLAGS DIFF FINAL; LYMPHOCYTE # 0.8 TH/MM3 (1.0-4.8); MEAN CELL VOLUME 93.5 FL (80.0-100.0); MEAN CORPUSCULAR HEMOGLOBIN 32.6 PG (27.0-34.0); MEAN CORPUSCULAR HGB CONC 34.8 % (32.0-36.0); NEUT % 71.2 % (16.0-70.0); PLATELET COUNT 260 TH/MM3 (150-450); RED BLOOD COUNT 4.07 MIL/MM3 (4.00-5.30); RED CELL DISTRIBUTION WIDTH 12.6 % (11.6-17.2); WHITE BLOOD COUNT 4.3 TH/MM3 (4.0-11.0)
--- NOTE | 2016-12-05 14:43 | EKG ---
Date Performed: 12/04/2016 Time Performed: 15:05:38 PTAGE: 66 years EKG: Sinus rhythm POSSIBLE LEFT ATRIAL ENLARGEMENT MINIMAL ST DEPRESSION BORDERLINE ECG PREVIOUS TRACING : 04/01/2010 11.51 Since previous tracing, no significant change noted DOCTOR: Atul Parker Interpretating Date/Time 12/05/2016 14:41:25
[2016-12-05 14:58] LABS: ALT (GPT) 26 U/L (10-53); ANION GAP 9 MEQ/L (5-15); AST (GOT) 105 U/L (15-37); BICARBONATE 24.4 MEQ/L (21.0-32.0); BICARBONATE 25.7 MEQ/L (21.0-32.0); BLOOD UREA NITROGEN 8 MG/DL (7-18); CHLORIDE 103 MEQ/L (98-107); GLOMERULAR FILTRATION RATE 87 ML/MIN (>89); POTASSIUM 3.5 MEQ/L (3.5-5.1); SODIUM (NA) 138 MEQ/L (136-145)
[2016-12-05 15:00] LABS: ALKALINE PHOSPHATASE 76 U/L (45-117); CREATINE KINASE 607 U/L (26-192); TOTAL BILIRUBIN ADULT 0.5 MG/DL (0.2-1.0)
[2016-12-05] MEDS ORDERED: POTASSIUM CHLORIDE 20 MEQ CONTROLLED RELEASE TAB PO ONE (15:15)
[2016-12-05 15:23] LABS: CKMB 27.4 NG/ML (0.5-3.6)
--- NOTE | 2016-12-05 15:37 | MA ---
cc: GREY LONDONO M.D. DATE: 12/05/2016 PROCEDURE PERFORMED 1. Left heart catheterization. 2. Coronary arteriography. 3. Left ventriculography. 4. Selective injection of left and right coronary arteries. 5. Right femoral angiography. 6. Vascade closure device, right femoral artery. PROCEDURE TECHNIQUE The patient was brought to the cardiac catheterization laboratory and the area of the right groin prepped and draped in the usual sterile manner. Following 15 mL of 1% Xylocaine for local anesthesia the right femoral artery was entered with an 18-gauge needle for placement of a short 6-[place]ese introducer sheath. This was done with a single stick without difficulty. Through the introducer sheath a 6-[place]ese diagnostic catheter system including a JL4, 3-D RC, and straight pigtail were used for the left heart study. Multiple projections of the left and right coronary arteries were taken and the left ventriculogram was done in the PERRY 30 degree projection only. The right femoral angiogram was done in the PERRY 30 degree projection only. At completion of the diagnostic procedure the catheters and introducer were removed and adequate hemostasis was maintained with the use of a Vascade device in the right femoral artery. The patient tolerated the procedure well. There were no immediate complications. HEMODYNAMIC DATA No gradient was recorded across the aortic valve. Left ventricular end-diastolic pressure was 22 mmHg. For complete hemodynamic details, please see accompanying paperwork. ANGIOGRAPHIC FINDINGS LEFT VENTRICLE The left ventricle demonstrates increased end-systolic dimensions. There is a small to medium size area of akinesis in the proximal to mid anterior wall and mid inferior wall. Overall left ventricular systolic function is moderately impaired. Estimated left ventricular ejection fraction is 40%. Trace mitral regurgitation is seen. The aortic valve is trileaflet and opens normally. The aortic root and the proximal portion of the ascending aorta are normal. Left coronary artery: Left main trunk: Arises normally from the left coronary sinus. Large caliber vessel. Normal. Left anterior descending artery: The LAD is a large-caliber vessel that gives rise to three diagonal branches and multiple septal perforating branches. The LAD is normal. The diagonal branches are small to medium in caliber and normal. Circumflex: The main circumflex gives rise to a high lateral branch and a posterolateral branch. The circumflex is large in caliber, nondominant and normal. The high lateral branch and posterolateral branches are large in caliber and normal. Right coronary artery: Dominant. The right coronary gives rise to a right ventricular marginal branch, posterior descending branch and posterior ventricular branch. The main right coronary artery is tydwyptp-in-tmomu in caliber and normal. The RV branch, posterior descending branch and posterior ventricular branches are small in caliber and normal. DIAGNOSIS 1. Status post [id number] myocardial infarction. 2. Moderate left ventricular dysfunction. 3. Normal coronary arteries. 4. Suspected Takotsubo-type syndrome. RECOMMENDATIONS The patient's tirofiban has been discontinued. She will be started on Effient and DAPT therapy for one year. We will continue her hypertension treatment with beta blockade and EBONIE inhibitor therapy as needed. Sublingual nitroglycerin p.r.n. I will observe her overnight tonight with ambulation and if she is stable can be discharged to home tomorrow. MD VICENTE Anaya/VIANNEY /8:08 AM /3:20 PM
[2016-12-05] MEDS: METOPROLOL SUCCINATE 25 MG EXTENDED RELEASE TAB PO SCH (16:02)
[2016-12-05] MEDS: LORazepam 0.5 MG TAB PO PRN (16:06)
[2016-12-05] MEDS: SODIUM CHLOR 0.9% 1000 ML INJ 1,000 ML IV SCH (16:22)
[2016-12-05] MEDS: ZOLPIDEM TARTRATE 10 MG TAB PO PRN (21:27)
[2016-12-06] VITALS (14 sets, daily range): BP systolic 132–142; BP diastolic 86–97; PULSE 66–100; RESP 17–20; TEMP 98–98.5; O2SAT 97–98
[2016-12-06] MEDS: SODIUM CHLOR 0.9% 1000 ML INJ 1,000 ML IV SCH (02:22)
[2016-12-06] MEDS: LEVOTHYROXINE SODIUM 75 MCG TAB PO SCH (05:26)
--- NOTE | 2016-12-06 08:56 | HHI.PR ---
Subjective Remarks This is a pleasant 66 y/o Female with PSVT, Atrial Tachycardia, Anxiety, Hypothyroidism, who came to ER with chest pain associated SOB and Diaphoresis, followed by Doctor Dario Hester outpatient, found Hypokalemic, Hypocalcemia Trop 40.0. INR 1.0. CXR with no acute findings. Dr. Hester consulted by ER physician, started on Heparin gtt/Aggrastat infusion, status post Cardiac Catheterization Suspected Takotsubo-Type syndrome , Tirofiban discontinued, Started on Effient and DAPT, Beta blockers, EBONIE inhibitor and Sublingual Nitroglycerine. observe overnight and Discharge in am tomorrow. 12/06: Seen in her bedroom and discussed with her Primary vaccine specialist Doctor Dario Hester okay to discharge home and continue Effient and Aspirin, also ask to continue, Statin and ARB and Beta Re Metoprolol. he will follow the patient in the next 2 weeks. no nausea, vomit or diarrhea, denies Chest pain. Objective Vital Signs Date Time Temp Pulse Resp B/P Pulse Ox O2 Delivery O2 Flow Rate FiO2 12/06/16 06:05 75 12/06/16 05:29 98.0 76 20 132/86 12/06/16 05:05 77 12/06/16 04:10 72 12/06/16 03:14 75 12/06/16 02:13 71 12/06/16 01:26 71 12/06/16 00:12 72 12/05/16 23:18 98.7 73 18 129/84 100 12/05/16 22:08 98 12/05/16 21:32 74 12/05/16 20:34 85 12/05/16 19:50 98.1 85 18 141/89 97 12/05/16 18:16 88 12/05/16 17:42 85 12/05/16 16:10 89 12/05/16 15:23 98 12/05/16 15:20 98.6 81 18 112/74 98 I/O 12/05/16 12/05/16 12/05/16 12/06/16 12/06/16 12/06/16 06:59 14:59 22:59 06:59 14:59 22:59 Intake Total 1280 ml 1190 ml Balance 1280 ml 1190 ml Intake Oral 480 ml 240 ml IV Total 800 ml 950 ml # Voids 3 1 # Bowel Movements 0 Result Diagram: 12/05/16 1343 12/05/16 1343 Imaging Last Impressions Chest X-Ray 12/04/16 1438 Signed Impressions: Service Date/Time: November 14:58 - CONCLUSION: No acute disease. Tariq Lim MD Procedures Cardiac Catheterization Other Results Laboratory Tests Test 12/04/16 12/05/16 12/05/16 12/05/16 16:50 01:16 01:30 13:43 Platelet Estimate NORMAL Platelet Morphology Comment NORMAL Prothrombin Time 10.7 SEC Prothromb Time International 1.0 RATIO Ratio Activated Partial 51.1 SEC Thromboplast Time Thyroid Stimulating Hormone 3.130 uIU/ML 3rd Gen White Blood Count 4.3 TH/MM3 Red Blood Count 4.07 MIL/MM3 Hemoglobin 13.2 GM/DL Hematocrit 38.0 % Mean Corpuscular Volume 93.5 FL Mean Corpuscular Hemoglobin 32.6 PG Mean Corpuscular Hemoglobin 34.8 % Concent Red Cell Distribution Width 12.6 % Platelet Count 260 TH/MM3 Mean Platelet Volume 7.6 FL Neutrophils (%) (Auto) 71.2 % Lymphocytes (%) (Auto) 18.0 % Monocytes (%) (Auto) 10.0 % Eosinophils (%) (Auto) 0.4 % Basophils (%) (Auto) 0.4 % Neutrophils # (Auto) 3.1 TH/MM3 Lymphocytes # (Auto) 0.8 TH/MM3 Monocytes # (Auto) 0.4 TH/MM3 Eosinophils # (Auto) 0.0 TH/MM3 Basophils # (Auto) 0.0 TH/MM3 CBC Comment DIFF FINAL Differential Comment Sodium Level 135 MEQ/L Potassium Level 3.5 MEQ/L Chloride Level 103 MEQ/L Carbon Dioxide Level 24.4 MEQ/L Anion Gap 8 MEQ/L Blood Urea Nitrogen 7 MG/DL Creatinine 0.62 MG/DL Estimat Glomerular Filtration 97 ML/MIN Rate Random Glucose 118 MG/DL Calcium Level 8.2 MG/DL Protein Corrected Calcium 9.0 MG/DL Phosphorus Level 2.9 MG/DL Magnesium Level 2.0 MG/DL Total Bilirubin 0.5 MG/DL Aspartate Amino Transf 105 U/L (AST/SGOT) Alanine Aminotransferase 26 U/L (ALT/SGPT) Alkaline Phosphatase 76 U/L Total Creatine Kinase 607 U/L Creatine Kinase MB 27.4 NG/ML Creatine Kinase MB % 4.5 % Troponin I 15.30 NG/ML Total Protein 6.5 GM/DL Albumin 3.7 GM/DL Objective Remarks PE: No acute distress GENERAL: Extremely pleasant middle-aged white female in no acute distress. Appears comfortable. HEENT: PERRLA, EOMI. No scleral icterus or conjunctival pallor. No lid lag or facial droop. CARDIOVASCULAR: Regular rate and rhythm. No obvious murmurs to auscultation. No chest tenderness to palpation. RESPIRATORY: No obvious rhonchi or wheezing. Clear to auscultation. Breath sounds equal bilaterally. GASTROINTESTINAL: Abdomen soft, non-tender, nondistended. BS normal. MUSCULOSKELETAL: Extremities without clubbing, cyanosis, or edema. NEUROLOGICAL: Awake, alert and oriented x4. No focal neurologic deficits. Moving both upper and lower extremities spontaneously. Medications and IVs Current Medications Medications (Trade) Dose Ordered Sig/Flaquita Route Start Time Stop Time Status Last Admin (NS Flush) 2 ml UNSCH PRN IVF 12/04/16 14:45 Nitroglycerin 0.5 inch 0.5 inch Q6HR PRN TOPICAL 12/04/16 20:30 (NS 1000 ml Inj) 1,000 ml @ 100 mls/hr Q10H IV 12/04/16 20:22 12/06/16 02:22 (Zofran Inj) 4 mg Q6H PRN IVP 12/04/16 20:30 (Tylenol) 650 mg Q6H PRN PO 12/04/16 20:30 ([place] 5-325 Mg) 1 tab Q4H PRN PO 12/04/16 20:30 (Morphine Inj) 2 mg Q3H PRN IV 12/04/16 20:30 12/04/16 20:58 (Chaya-Colace) 1 tab BID PO 12/04/16 21:00 12/05/16 19:49 (Milk Of Magnesia Liq) 30 ml Q12H PRN PO 12/04/16 20:30 (Senokot) 17.2 mg Q12H PRN PO 12/04/16 20:30 (Dulcolax Supp) 10 mg DAILY PRN RECTAL 12/04/16 20:30 (Lactulose Liq) 30 ml DAILY PRN PO 12/04/16 20:30 (Synthroid) 75 mcg DAILY@06 PO 12/05/16 06:00 12/06/16 05:26 (Ativan) 0.5 mg DAILY PRN PO 12/04/16 20:30 12/05/16 16:06 (Betapace) 80 mg HS PO 12/04/16 21:00 12/05/16 19:49 (Betapace) 120 mg DAILY PO 12/05/16 09:00 12/05/16 08:45 (Theragran) 1 tab DAILY PO 12/05/16 09:00 12/05/16 08:45 (Vasotec Inj) 1.25 mg Q6H PRN IV PUSH 12/04/16 21:45 (Ambien) 10 mg HS PRN PO 12/04/16 23:15 12/05/16 21:27 (NS Flush) 2 ml BID IV FLUSH 12/05/16 09:00 12/05/16 19:50 (NS Flush) 2 ml UNSCH PRN IV FLUSH 12/05/16 08:15 (Percocet 5-325 Mg) 1 tab Q4H PRN PO 12/05/16 08:15 (Atropine Inj) 0.5 mg UNSCH PRN IV 12/05/16 08:15 (Effient) 10 mg DAILY PO 12/05/16 09:00 12/05/16 08:45 (Ecotrin Ec) 81 mg DAILY PO 12/06/16 09:00 (Toprol Xl) 25 mg DAILY PO 12/05/16 14:15 12/05/16 16:02 (Cozaar) 25 mg DAILY PO 12/06/16 09:00 (Pneumovax-23 Inj) 25 mcg ONCE ONCE IM 12/06/16 10:00 12/06/16 10:01 A/P Assessment and Plan 1. Takotsubo-Type Syndrome recommended Tirofiban discontinued, Started on Effient and DAPT, Beta blockers, EBONIE inhibitor and Sublingual Nitroglycerine. as per Doctor Dario Hester at this time in to see patient and discuss with me face to face recommended discharge, her BMP within normal limits, also wants to continue ASA, Effient, Statin, ARB, metoprolol and her Sotalol and follow with him in two weeks. 2. Hypertension continue Beta blockers and ARBs. 3. Hypothyroidism continue Hormonal replacement 4. History of AV meagan reentry tachycardia and PSVT successfully treated with Sotalol. 5. Rhabdomyolysis on IV fluids. 6. Anxiety disorder continue home medicines. 7. electrolyte derangement replaced DVT Prophylaxis: SCDs Discharge Planning Discharge Home now. David Kinney MD Dec 06, 2016 08:56
[2016-12-06] MEDS: SOTALOL HCL 80 MG TAB PO SCH (08:59)
[2016-12-06] MEDS ORDERED: ASPIRIN EC 81 MG TABEC PO SCH (09:00)
[2016-12-06] MEDS: METOPROLOL SUCCINATE 25 MG EXTENDED RELEASE TAB PO SCH (09:00)
[2016-12-06] MEDS ORDERED: LOSARTAN 25 MG TAB PO SCH (09:00)
[2016-12-06] MEDS: DOCUSATE SODIUM 50 MG/SENNA 8.6 MG TAB PO SCH (09:00)
[2016-12-06] MEDS: LORazepam 0.5 MG TAB PO PRN (09:00)
[2016-12-06] MEDS: PRASUGREL 10 MG TAB PO SCH (09:01)
[2016-12-06] MEDS: SODIUM CHLORIDE 0.9% FLUSH 10 ML FLUSH IV FLUSH SCH (09:01)
[2016-12-06] MEDS ORDERED: PRAS10TA PO (09:01)
[2016-12-06] MEDS ORDERED: COZA25TA PO (09:01)
[2016-12-06] MEDS ORDERED: ASPI-99 PO (09:01)
[2016-12-06] MEDS ORDERED: METO25TA6 PO (09:01)
[2016-12-06] MEDS: MULTIVITAMIN TAB PO SCH (09:01)
[2016-12-06] MEDS ORDERED: NITR1SUB3 SL (09:03)
--- NOTE | 2016-12-06 09:06 | PD.CARD.PN ---
Subjective Subjective Remarks No CP or SOB. Very anxious. HR up. Labs not draw yet this AM. Objective Medications Current Medications Medications (Trade) Dose Ordered Sig/Flaquita Route PRN Reason Start Time Stop Time Status Last Admin Dose Admin Sodium Chloride (NS Flush) 2 ml UNSCH PRN IVF FLUSH AFTER USING IV ACCESS 12/04/16 14:45 Nitroglycerin 0.5 inch 0.5 inch Q6HR PRN TOPICAL CHEST PAIN 12/04/16 20:30 Sodium Chloride (NS 1000 ml Inj) 1,000 ml @ 100 mls/hr Q10H IV 12/04/16 20:22 12/06/16 02:22 Ondansetron HCl (Zofran Inj) 4 mg Q6H PRN IVP NAUSEA OR VOMITING 12/04/16 20:30 Acetaminophen (Tylenol) 650 mg Q6H PRN PO FEVER/PAIN SCALE 1 TO 2 12/04/16 20:30 Acetaminophen/ Hydrocodone Bitart ([place] 5-325 Mg) 1 tab Q4H PRN PO PAIN SCALE 3 TO 5 12/04/16 20:30 Morphine Sulfate (Morphine Inj) 2 mg Q3H PRN IV Pain 6-10 12/04/16 20:30 12/04/16 20:58 Senna/Docusate Sodium (Chaya-Colace) 1 tab BID PO 12/04/16 21:00 12/05/16 19:49 Magnesium Hydroxide (Milk Of Magnesia Liq) 30 ml Q12H PRN PO MILD - MODERATE CONSTIPATION 12/04/16 20:30 Sennosides (Senokot) 17.2 mg Q12H PRN PO MODERATE - SEVERE CONSTIPATION 12/04/16 20:30 Bisacodyl (Dulcolax Supp) 10 mg DAILY PRN RECTAL SEVERE CONSITIPATION 12/04/16 20:30 Lactulose (Lactulose Liq) 30 ml DAILY PRN PO SEVERE CONSITIPATION 12/04/16 20:30 Levothyroxine Sodium (Synthroid) 75 mcg DAILY@06 PO 12/05/16 06:00 12/06/16 05:26 Lorazepam (Ativan) 0.5 mg DAILY PRN PO ANXIETY AND/OR AGITATION 12/04/16 20:30 12/05/16 16:06 Sotalol HCl (Betapace) 80 mg HS PO 12/04/16 21:00 12/05/16 19:49 Sotalol HCl (Betapace) 120 mg DAILY PO 12/05/16 09:00 12/05/16 08:45 Multivitamins (Theragran) 1 tab DAILY PO 12/05/16 09:00 12/05/16 08:45 Enalaprilat (Vasotec Inj) 1.25 mg Q6H PRN IV PUSH SBP>160, DBP>90 12/04/16 21:45 Zolpidem Tartrate (Ambien) 10 mg HS PRN PO INSOMNIA 12/04/16 23:15 12/05/16 21:27 Sodium Chloride (NS Flush) 2 ml BID IV FLUSH 12/05/16 09:00 12/05/16 19:50 Sodium Chloride (NS Flush) 2 ml UNSCH PRN IV FLUSH FLUSH AFTER USING IV ACCESS 12/05/16 08:15 Oxycodone/ Acetaminophen (Percocet 5-325 Mg) 1 tab Q4H PRN PO PAIN SCALE 1 TO 4 12/05/16 08:15 Atropine Sulfate (Atropine Inj) 0.5 mg UNSCH PRN IV VAGAL REPONSE 12/05/16 08:15 Prasugrel (Effient) 10 mg DAILY PO 12/05/16 09:00 12/05/16 08:45 Aspirin (Ecotrin Ec) 81 mg DAILY PO 12/06/16 09:00 Metoprolol Succinate (Toprol Xl) 25 mg DAILY PO 12/05/16 14:15 12/05/16 16:02 Losartan Potassium (Cozaar) 25 mg DAILY PO 12/06/16 09:00 Pneumococcal Polyvalent Vaccine (Pneumovax-23 Inj) 25 mcg ONCE ONCE IM 12/06/16 10:00 12/06/16 10:01 Vital Signs / I&O Vital Signs Date Time Temp Pulse Resp B/P Pulse Ox O2 Delivery O2 Flow Rate FiO2 12/06/16 06:05 75 12/06/16 05:29 98.0 76 20 132/86 12/06/16 05:05 77 12/06/16 04:10 72 12/06/16 03:14 75 12/06/16 02:13 71 12/06/16 01:26 71 12/06/16 00:12 72 12/05/16 23:18 98.7 73 18 129/84 100 12/05/16 22:08 98 12/05/16 21:32 74 12/05/16 20:34 85 12/05/16 19:50 98.1 85 18 141/89 97 12/05/16 18:16 88 12/05/16 17:42 85 12/05/16 16:10 89 12/05/16 15:23 98 12/05/16 15:20 98.6 81 18 112/74 98 I/O 12/05/16 12/05/16 12/05/16 12/06/16 12/06/16 12/06/16 07:00 15:00 23:00 07:00 15:00 23:00 Intake Total 1280 ml 1190 ml Balance 1280 ml 1190 ml Intake Oral 480 ml 240 ml IV Total 800 ml 950 ml # Voids 3 1 # Bowel Movements 0 Physical Exam VSS, tachy ST No JVD Lungs CTA Heart: Reg, tachy no murmur. Ext: No C/C/E. Right groin cath site OK mild ecchymosis no hematoma. Laboratory Laboratory Tests Test 12/05/16 13:43 White Blood Count 4.3 TH/MM3 Red Blood Count 4.07 MIL/MM3 Hemoglobin 13.2 GM/DL Hematocrit 38.0 % Mean Corpuscular Volume 93.5 FL Mean Corpuscular Hemoglobin 32.6 PG Mean Corpuscular Hemoglobin 34.8 % Concent Red Cell Distribution Width 12.6 % Platelet Count 260 TH/MM3 Mean Platelet Volume 7.6 FL Neutrophils (%) (Auto) 71.2 % Lymphocytes (%) (Auto) 18.0 % Monocytes (%) (Auto) 10.0 % Eosinophils (%) (Auto) 0.4 % Basophils (%) (Auto) 0.4 % Neutrophils # (Auto) 3.1 TH/MM3 Lymphocytes # (Auto) 0.8 TH/MM3 Monocytes # (Auto) 0.4 TH/MM3 Eosinophils # (Auto) 0.0 TH/MM3 Basophils # (Auto) 0.0 TH/MM3 CBC Comment DIFF FINAL Differential Comment Sodium Level 135 MEQ/L Potassium Level 3.5 MEQ/L Chloride Level 103 MEQ/L Carbon Dioxide Level 24.4 MEQ/L Anion Gap 8 MEQ/L Blood Urea Nitrogen 7 MG/DL Creatinine 0.62 MG/DL Estimat Glomerular Filtration 97 ML/MIN Rate Random Glucose 118 MG/DL Calcium Level 8.2 MG/DL Protein Corrected Calcium 9.0 MG/DL Phosphorus Level 2.9 MG/DL Magnesium Level 2.0 MG/DL Total Bilirubin 0.5 MG/DL Aspartate Amino Transf 105 U/L (AST/SGOT) Alanine Aminotransferase 26 U/L (ALT/SGPT) Alkaline Phosphatase 76 U/L Total Creatine Kinase 607 U/L Creatine Kinase MB 27.4 NG/ML Creatine Kinase MB % 4.5 % Troponin I 15.30 NG/ML Total Protein 6.5 GM/DL Albumin 3.7 GM/DL Imaging Last 48 hours Impressions Chest X-Ray 12/04/16 1438 Signed Impressions: Service Date/Time: November 14:58 - CONCLUSION: No acute disease. Tariq Lim MD Assessment and Plan Problem List: (1) NSTEMI (non-ST elevated myocardial infarction) (2) Takotsubo cardiomyopathy (3) AVNRT (AV meagan re-entry tachycardia) (4) Hypocalcemia (5) Hypokalemia (6) Hypomagnesemia (7) Hypertension Assessment and Plan CV stable and electrolyte abnormalities corrected. Await AM BMP if lyte normal can discharge to home. All current meds at home. Scripts written for cardiac meds. F/U with me in 2 weeks. No strenuous activity. Instructions given and questions answered. Code Status Full Discussed Condition With Patient and director staffing. Dario Hester MD Dec 06, 2016 09:06
[2016-12-06] MEDS ORDERED: PNEUMOCOCCAL POLYVALENT INJ 25 MCG/0.5 ML SYR IM ONE (10:00)
[2016-12-06 10:07] LABS: BICARBONATE 24.5 MEQ/L (21.0-32.0)
[2016-12-06 10:10] LABS: POTASSIUM 3.7 MEQ/L (3.5-5.1)
--- NOTE | 2016-12-06 11:40 | HHI.DS ---
Discharge Summary Admission Date Dec 04, 2016 at 20:10 Discharge Date: Dec 06, 2016 Admitting Diagnosis NSTEMI (1) NSTEMI (non-ST elevated myocardial infarction) ICD Code: I21.4 Diagnosis: Principal (2) Atrial tachycardia ICD Code: I47.1 Diagnosis: Secondary (3) Hypokalemia ICD Code: E87.6 Diagnosis: Principal (4) Rhabdomyolysis ICD Code: M62.82 Diagnosis: Principal (5) HTN (hypertension) ICD Code: I10 Diagnosis: Secondary Procedures Cardiac Cath with Stent placement. Brief History - From Admission This is a 66-year-old female with a PMH of PSVT, Atrial Tachycardia, Anxiety and Hypothyroidism who presented to the ER with complaints of chest pain starting earlier this morning. Patient states she had gone to see her Pain Management physician this morning and noted acute onset of right-sided chest pain w/ "flip flopping" in her chest. Reports associated SOB and diaphoresis at that time. Does follow with Dr. Hester as outpatient, seen recently in office w/ normal exam. On arrival, BP 165/89, HR 76, O2 sat 100% on RA, Afebrile. CBC essentially unremarkable except for elevated neutrophil calm. K + 2.3. Ca 5.3. CPK 925. Trop 40.0. INR 1.0. CXR with no acute findings. Dr. Hester consulted by ER physician, started on Heparin gtt/Aggrastat infusion w/ plans for Cath in am. Pt currently chest pain free. Appears comfortable on exam. Electrolytes replaced in ER, repeat labs normalized. Repeat Trop >40. CBC/BMP: 12/05/16 1343 12/06/16 0907 Significant Findings Laboratory Tests Test 12/04/16 12/04/16 12/04/16 12/05/16 16:50 16:52 19:15 01:16 Neutrophils (%) (Auto) 87.9 % (16.0-70.0) Lymphocytes (%) (Auto) 7.0 % (9.0-44.0) Neutrophils # (Auto) 8.3 TH/MM3 (1.8-7.7) Lymphocytes # (Auto) 0.7 TH/MM3 (1.0-4.8) Activated Partial 20.1 SEC 51.1 SEC Thromboplast Time (24.3-30.1) (24.3-30.1) Potassium Level 2.3 MEQ/L (3.5-5.1) Chloride Level 121 MEQ/L (98-107) Carbon Dioxide Level 15.2 MEQ/L (21.0-32.0) Creatinine 0.24 MG/DL (0.50-1.00) Random Glucose 66 MG/DL 108 MG/DL (74-106) (74-106) Calcium Level 5.3 MG/DL (8.5-10.1) Protein Corrected Calcium 6.6 MG/DL (8.5-10.1) Magnesium Level 1.1 MG/DL (1.5-2.5) Aspartate Amino Transf 108 U/L (15-37) (AST/SGOT) Alkaline Phosphatase 43 U/L (45-117) Total Creatine Kinase 925 U/L 1623 U/L (-192) (-192) Creatine Kinase MB 98.3 NG/ML 149.5 NG/ML (0.5-3.6) (0.5-3.6) Creatine Kinase MB % 10.6 % 9.2 % (0.0-4.0) (0.0-4.0) Troponin I 40.00 NG/ML GREATER THAN (0.02-0.05) 40.00 NG/ML (0.02-0.05) Total Protein 4.1 GM/DL (6.4-8.2) Albumin 2.2 GM/DL (3.4-5.0) Sodium Level 133 MEQ/L (136-145) Test 12/05/16 12/05/16 12/06/16 01:30 13:43 09:07 Total Creatine Kinase 1167 U/L 607 U/L (-192) (-192) Creatine Kinase MB 74.9 NG/ML 27.4 NG/ML (0.5-3.6) (0.5-3.6) Creatine Kinase MB % 6.4 % (0.0-4.0) 4.5 % (0.0-4.0) Troponin I 23.50 NG/ML 15.30 NG/ML (0.02-0.05) (0.02-0.05) Neutrophils (%) (Auto) 71.2 % (16.0-70.0) Monocytes (%) (Auto) 10.0 % (0.0-8.0) Lymphocytes # (Auto) 0.8 TH/MM3 (1.0-4.8) Sodium Level 135 MEQ/L (136-145) Estimat Glomerular Filtration 87 ML/MIN (>89) 84 ML/MIN (>89) Rate Random Glucose 118 MG/DL 117 MG/DL (74-106) (74-106) Calcium Level 8.2 MG/DL (8.5-10.1) Aspartate Amino Transf 105 U/L (15-37) (AST/SGOT) Blood Urea Nitrogen 6 MG/DL (7-18) Imaging Last Impressions Chest X-Ray 12/04/16 1438 Signed Impressions: Service Date/Time: November 14:58 - CONCLUSION: No acute disease. Tariq Lim MD PE at Discharge PE: No acute distress GENERAL: Extremely pleasant middle-aged white female in no acute distress. Appears comfortable. HEENT: PERRLA, EOMI. No scleral icterus or conjunctival pallor. No lid lag or facial droop. CARDIOVASCULAR: Regular rate and rhythm. No obvious murmurs to auscultation. No chest tenderness to palpation. RESPIRATORY: No obvious rhonchi or wheezing. Clear to auscultation. Breath sounds equal bilaterally. GASTROINTESTINAL: Abdomen soft, non-tender, nondistended. BS normal. MUSCULOSKELETAL: Extremities without clubbing, cyanosis, or edema. NEUROLOGICAL: Awake, alert and oriented x4. No focal neurologic deficits. Moving both upper and lower extremities spontaneously. Hospital Course This is a pleasant 66 y/o Female with PSVT, Atrial Tachycardia, Anxiety, Hypothyroidism, who came to ER with chest pain associated SOB and Diaphoresis, followed by Doctor Dario Hester outpatient, found Hypokalemic, Hypocalcemia Trop 40.0. INR 1.0. CXR with no acute findings. Dr. Hester consulted by ER physician, started on Heparin gtt/Aggrastat infusion, status post Cardiac Catheterization Suspected Takotsubo-Type syndrome , Tirofiban discontinued, Started on Effient and DAPT, Beta blockers, EBONIE inhibitor and Sublingual Nitroglycerine. observe overnight and Discharge in am tomorrow. 12/06: Seen in her bedroom and discussed with her Primary lan specialist Doctor Dario Hester okay to discharge home and continue Effient and Aspirin, also ask to continue, Statin and ARB and Beta Re Metoprolol. he will follow the patient in the next 2 weeks. no nausea, vomit or diarrhea, denies Chest pain. Assessment and Plan 1. Takotsubo-Type Syndrome recommended Tirofiban discontinued, Started on Effient and DAPT, Beta blockers, EBONIE inhibitor and Sublingual Nitroglycerine. as per Doctor Dario Hester at this time in to see patient and discuss with me face to face recommended discharge, her BMP within normal limits, also wants to continue ASA, Effient, Statin, ARB, metoprolol and her Sotalol and follow with him in two weeks. 2. Hypertension continue Beta blockers and ARBs. 3. Hypothyroidism continue Hormonal replacement 4. History of AV meagan reentry tachycardia and PSVT successfully treated with Sotalol. 5. Rhabdomyolysis on IV fluids. 6. Anxiety disorder continue home medicines. 7. electrolyte derangement replaced DVT Prophylaxis: SCDs Discharge Planning Discharge Home now. Pt Condition on Discharge: Good Discharge Disposition: Discharge Home Discharge Time: <= 30 minutes Discharge Instructions DIET: Follow Instructions for: Heart Healthy Diet Activities you can perform: Regular-No Restrictions Other Activity Instructions: No strenous exercise until released by lan specialist David Kinney MD Dec 06, 2016 11:39
[2016-12-06] MEDS ORDERED: POTASSIUM CHLORIDE 20 MEQ CONTROLLED RELEASE TAB PO ONE (12:15)
== END 2016-12-06 12:55 | disposition home or self-care (01) | DRG 281 ==
LOC: NEPE 13:05 → NEDA 20:10 → NEDH 12-05 00:39 → HCIS 12-05 11:28
PROVIDERS: ADMIT Internal Medicine; ATTEND Internal Medicine
PROC: B2111ZZ Fluoroscopy of Multiple Coronary Arteries using Low Osmolar Contrast (ICD-10-PCS; 2016-12-05)
PROC: B2151ZZ Fluoroscopy of Left Heart using Low Osmolar Contrast (ICD-10-PCS; 2016-12-05)
PROC: B41F1ZZ Fluoroscopy of Right Lower Extremity Arteries using Low Osmolar Contrast (ICD-10-PCS; 2016-12-05)
PROC: 4A023N7 Measurement of Cardiac Sampling and Pressure, Left Heart, Percutaneous Approach (ICD-10-PCS; principal; 2016-12-05 07:30)
DX: I21.4 Non-ST elevation (NSTEMI) myocardial infarction (principal); I47.1 Supraventricular tachycardia; M62.82 Rhabdomyolysis; I11.9 Hypertensive heart disease without heart failure; E83.51 Hypocalcemia; E83.42 Hypomagnesemia; E03.9 Hypothyroidism, unspecified; E87.6 Hypokalemia; E78.1 Pure hyperglyceridemia; M19.90 Unspecified osteoarthritis, unspecified site; F41.9 Anxiety disorder, unspecified; Z53.29 Procedure and treatment not carried out because of patient's decision for other reasons; Z82.49 Family history of ischemic heart disease and other diseases of the circulatory system; Z87.891 Personal history of nicotine dependence; Z98.1 Arthrodesis status
CPT/HCPCS: 71010; 80048; 80053; 82550; 82552; 83735; 84100; 84155; 84443; 84484; 85002; 85025; 85610; 85730; 93005; 93458; 96365; 96375; C1760; C1769; C1893; G0269; J0610; J1644; J2250; J2270; J3010; J3246; J3480; J7030; Q9967